=== PATIENT | male | born 1970 | race Caucasian/White ===

== ENCOUNTER 2016-09-07 17:47 | Inpatient (IN) | payer OTHER ==
[~2016-09-07] VITALS: Ht 167.6 cm; Wt 91.0 kg
[~2016-09-07 17:47] MED LIST: CITA20TA6 PO; CYCL-117 PO; DIAZ-90 PO; HYDR-3612 PO; IBUP-1542 PO; LISI20TA; MIRT15TA5 PO; NAPR-688 PO; OMEP40CA6 PO; RISP2TAB93 PO; ZOLP10TA5 PO; [UNRECOGNIZED DRUG - CODE] PO
[2016-09-07] MEDS ORDERED: SOD CHLORIDE 0.9% 1,000 ML IV STA ×2 (19:33→21:09)
[2016-09-07] MEDS ORDERED: ASPIRIN 325 MG TAB PO STA (19:54)
[2016-09-07 20:15] LABS: ADD SCAN DIFF NO
[2016-09-07 20:18] LABS: BASOPHIL # 0.1 10^3/ul (0.0-0.1); BASOPHILS % 0.5 % (0.0-2.0); EOSINOPHILS # 0.1 10^3/ul (0.0-0.5); HEMATOCRIT 41.7 % (42.0-52.0); HEMOGLOBIN 13.7 g/dl (14.0-18.0); LYMPHOCYTES # 3.2 10^3/ul (0.8-2.9); LYMPHOCYTES % 32.5 % (15.0-51.0); MEAN CORPUSCULAR HGB CONC 32.9 g/dl (32.0-37.0); MEAN CORPUSCULAR VOLUME 85.1 fl (82.0-101.0); MEAN PLATELET VOLUME 10.7 fl (7.4-10.4); MONOCYTE # 0.7 10^3/ul (0.3-0.9); MONOCYTES % 6.7 % (0.0-11.0); NEUTROPHIL # 5.7 10^3/ul (1.6-7.5); NEUTROPHILS % 58.5 % (39.0-77.0); PLATELET COUNT 285 10^3/UL (140-415); RED CELL DISTRIBUTION WIDTH 13.7 % (11.5-14.5); WHITE BLOOD COUNT 9.8 10^3/ul (4.8-10.8)
[2016-09-07 20:35] LABS: ALANINE AMINOTRANSFERASE 57 IU/L (13-69); ALBUMIN 4.8 g/dl (3.3-4.9); ALBUMIN/GLOBULIN RATIO 1.71; ALKALINE PHOSPHATASE 68 IU/L (42-121); ANION GAP 14 (8-16); ASPARTATE AMINO TRANSFERASE 29 IU/L (15-46); BILIRUBIN,INDIRECT 0.1 mg/dl (0-1.1); BILIRUBIN,TOTAL 0.1 mg/dl (0.2-1.3); BLOOD UREA NITROGEN 22 mg/dl (7-20); CALCIUM 9.1 mg/dl (8.4-10.2); CARBON DIOXIDE 27 mmol/L (21-31); CHLORIDE 101 mmol/L (97-110); CREATININE 2.44 mg/dl (0.61-1.24); GLUCOSE 102 mg/dl (70-220); POTASSIUM 4.2 mmol/L (3.5-5.1); SODIUM 138 mmol/L (135-144); TOTAL PROTEIN 7.6 g/dl (6.1-8.1)
[2016-09-07 20:47] LABS: B-TYPE NATRIURETIC PEPTIDE 305 PG/ML (0-125); TROPONIN-I < 0.012 ng/ml (0.00-0.12)
[2016-09-07] MEDS ORDERED: IBUP-1542 PO (20:52)
[2016-09-07] MEDS ORDERED: METF1000 PO (20:53)
[2016-09-07] MEDS ORDERED: CLON0.3T PO (20:53)
[2016-09-07] MEDS ORDERED: AMLO-218 PO (20:54)
[2016-09-07] MEDS ORDERED: HYD25 PO (20:55)
[2016-09-07] MEDS ORDERED: BENA40TA41 PO (20:55)
[2016-09-07] MEDS ORDERED: ATEN100T PO (20:56)
[2016-09-07] MEDS ORDERED: CITA20TA11 PO (20:57)
[2016-09-07] MEDS ORDERED: ASPI-664 PO (20:57)
[2016-09-07] MEDS ORDERED: RISP2TAB93 PO (20:58)
[2016-09-07] MEDS ORDERED: MIRT15TA5 PO (20:59)
--- NOTE | 2016-09-07 21:11 | RADRPT ---
PROCEDURE: XR Chest. CLINICAL INDICATION: Chest pain. TECHNIQUE: Single frontal view of the chest. COMPARISON: 06/29/2013. FINDINGS: The cardiomediastinal silhouette is within normal limits. Improved lung inflation over the interval. The lungs are clear. No signs of pleural fluid or pneumothorax are seen. The osseous structures an d soft tissues are unremarkable. IMPRESSION: No evidence for active cardiopulmonary disease. RPTAT: UU Physician Pat Date Time Electronically viewed and signed by Physician Pat on 09/07/2016 21:11 RS/
--- NOTE | 2016-09-07 21:17 | ERA ---
ER Documentation Chief Complaint Date/Time DATE: 09/07/16 TIME: 21:12 Chief Complaint REFERRED TO THE ER FROM PMD FOR LOW BLOOD PRESSURE AND LOW HGB HPI This 46-year-old male who stated to me that yesterday he was having very high blood pressure numbers with a systolic in the low 200s. He said that today however he is having hypotension. He says he has not taken any more of his usual blood pressure medication. He says he has been taking it today as he usually does. He said that he has been having some chest pain off and on yesterday and today with some shortness of breath. The chest pains described as a pressure without radiation but only lasts a brief period. Currently he is chest pain-free. He said he went to his doctor this afternoon who checked on him but told him to go home and take a nap and to rest. Patient says he feels slightly dizzy but not syncopal. The patient says he has not been sick lately no fever no nausea vomiting diarrhea or abdominal pain. ROS All systems reviewed and are negative except as per history of present illness. Medications Home Meds Reported Medications Mirtazapine* (Mirtazapine*) 15 Mg Tablet, 15 MG PO HS, TAB 09/07/16 Risperidone* (Risperdal*) 2 Mg Tablet, 2 MG PO DAILY, TAB 09/07/16 Citalopram Hydrobromide* (Celexa*) 20 Mg Tablet, 20 MG PO DAILY, #30 TAB 09/07/16 Aspirin (Aspirin Low Dose) 81 Mg Tablet.dr, 81 MG PO DAILY, #30 TAB 09/07/16 Atenolol* (Atenolol*) 100 Mg Tablet, 100 MG PO BID, #30 TAB 09/07/16 Benazepril Hcl* (Benazepril Hcl*) 40 Mg Tablet, 40 MG PO BID, #30 TAB 09/07/16 Hydrochlorothiazide* (Hydrochlorothiazide*) 25 Mg Tab, 25 MG PO DAILY, #30 TAB 09/07/16 Amlodipine Besylate* (Norvasc*) 10 Mg Tablet, 10 MG PO DAILY, TAB 09/07/16 Clonidine Hcl* (Clonidine Hcl*) 0.3 Mg Tablet, 0.3 MG PO TID Y for HTN, TAB 09/07/16 Metformin Hcl* (Metformin Hcl*) 1,000 Mg Tablet, 1000 MG PO WITH BREAKFAST DINNE , #60 TAB 09/07/16 Ibuprofen* (Ibuprofen*) 600 Mg Tablet, 600 MG PO Q6H Y for PAIN, TAB 09/07/16 Discontinued Reported Medications Risperidone* (Risperdal*) 2 Mg Tablet, 2 MG PO DAILY, TAB 01/06/16 Mirtazapine* (Mirtazapine*) 15 Mg Tablet, 15 MG PO HS, TAB 01/06/16 Citalopram Hydrobromide* (Citalopram Hydrobromide*) 20 Mg Tablet, 20 MG PO DAILY , #30 TAB 01/06/16 Glucosamine/Msm/Chondroitin A (CONDROLITE TABLET) 1 Each Tablet, 1 EACH PO DAILY 06/30/13 Cyclobenzaprine Hcl (Flexeril) 10 Mg Tablet, 7.5 MG PO BID 06/30/13 Omeprazole* (Omeprazole*) 40 Mg Capsule.dr, 40 MG PO BID 06/30/13 Naproxen* (Naproxen*) 500 Mg Tablet, 500 MG PO BID 06/30/13 Hydrocodone Bit-Acetaminophen* (Sublimity*) 1 Tab Tab, 1 TAB PO BID, TAB 06/30/13 Zolpidem Tartrate* (Zolpidem Tartrate*) 10 Mg Tablet, 10 MG PO HS 06/30/13 Lisinopril* (Prinivil*) 20 Mg Tablet, DAILY 06/29/13 Discontinued Scripts Diazepam* (Valium*) 5 Mg Tablet, 5 MG PO Q8 for MUSCLE SPASMS, #10 TAB Prov:JESI HOLLIS PA-C 09/04/15 Ibuprofen* (Motrin*) 600 Mg Tab, 600 MG PO Q6H Y for PAIN AND OR ELEVATED TEMP, #30 TAB Prov:JESI HOLLIS PA-C 09/04/15 Allergies Allergies: Coded Allergies: No Known Drug Allergy (Verified Allergy, Mild, 09/07/16) PMhx/Soc History of Surgery: Yes (neck sx) Anesthesia Reaction: No Hx Neurological Disorder: No Hx Respiratory Disorders: No Hx Cardiac Disorders: Yes (HTN) Hx Psychiatric Problems: No Hx Miscellaneous Medical Probl: Yes (DM) Hx Alcohol Use: No Hx Substance Use: No Hx Tobacco Use: No Smoking Status: Never smoker FmHx Family History: No coronary disease Physical Exam Vitals Vital Signs Date Time Temp Pulse Resp B/P Pulse Ox O2 Delivery O2 Flow Rate FiO2 09/07/16 20:30 58 16 92/62 100 Room Air 09/07/16 19:45 61 16 86/58 99 Room Air 09/07/16 17:55 97.3 61 18 102/59 99 Physical Exam Const: Well-developed, well-nourished Head: Atraumatic, normocephalic Eyes: Normal Conjunctiva, PERRLA, EOMI, normal sclera, no nystagmus ENT: Normal External Ears, Nose and Mouth, moist mucus membranes. Neck: Full range of motion. No meningismus, no lymphadenopathy. Resp: Clear to auscultation bilaterally, no wheezing, rhonchi, rales Cardio: Regular rate and rhythm, no murmurs, S1 S2 present Abd: Soft, non tender x 4, non distended. Normal bowel sounds, no guarding or rebound, no pulsitile abdominal masses or bruits Skin: No petechiae or rashes, no ecchymosis , no maculopapular rash Back: No midline or flank tenderness Ext: No cyanosis, or edema, FROM x 4, normal inspection, neurovascularly intact x 4 Neur: Awake and alert, STR 5/5 x 4, sensation intact x 4, no focal findings, cerebellum intact Psych: Normal Mood and Affect Result Diagram: 09/07/16200409/07/162004 Results 24 hrs Laboratory Tests Test 09/07/16 20:05 White Blood Count 9.810^3/ul Red Blood Count 4.9010^6/ul Hemoglobin 13.7g/dl Hematocrit 41.7% Mean Corpuscular Volume 85.1fl Mean Corpuscular Hemoglobin 28.0pg Mean Corpuscular Hemoglobin Concent 32.9g/dl Red Cell Distribution Width 13.7% Platelet Count 30896^3/UL Mean Platelet Volume 10.7fl Neutrophils % 58.5% Lymphocytes % 32.5% Monocytes % 6.7% Eosinophils % 1.0% Basophils % 0.5% Nucleated Red Blood Cells % 0.0/100WBC Neutrophils # 5.710^3/ul Lymphocytes # 3.210^3/ul Monocytes # 0.710^3/ul Eosinophils # 0.110^3/ul Basophils # 0.110^3/ul Nucleated Red Blood Cells # 0.010^3/ul Sodium Level 138mmol/L Potassium Level 4.2mmol/L Chloride Level 101mmol/L Carbon Dioxide Level 27mmol/L Anion Gap 14 Blood Urea Nitrogen 22mg/dl Creatinine 2.44mg/dl Glucose Level 102mg/dl Calcium Level 9.1mg/dl Total Bilirubin 0.1mg/dl Direct Bilirubin 0.00mg/dl Indirect Bilirubin 0.1mg/dl Aspartate Amino Transf (AST/SGOT) 29IU/L Alanine Aminotransferase (ALT/SGPT) 57IU/L Alkaline Phosphatase 68IU/L Troponin I < 0.012ng/ml B-Type Natriuretic Peptide 305PG/ML Total Protein 7.6g/dl Albumin 4.8g/dl Globulin 2.80g/dl Albumin/Globulin Ratio 1.71 Current Medications Medications (Trade) Dose Ordered Sig/Domingo Route PRN Reason Start Time Stop Time Status Last Admin Dose Admin Sodium Chloride (NS) 1,000 ml @ 1,000 mls/hr Q1H STAT IV 09/07/16 19:33 09/07/16 20:32 DC 09/07/16 19:48 Aspirin 325 mg 325 mg ONCE STAT PO 09/07/16 19:54 09/07/16 19:55 DC 09/07/16 20:33 Sodium Chloride (NS) 1,000 ml @ 1,000 mls/hr Q1H STAT IV 09/07/16 21:09 09/07/16 22:08 Procedures/MDM EKG: Rate/Rhythm: Sinus bradycardia heart rate 57 with inverted T waves in leads I and aVL QRS, ST, QT: NORMAL IA, QRS, QT] Impression: Abnormal EKG PROCEDURE: XR Chest. CLINICAL INDICATION: Chest pain. TECHNIQUE: Single frontal view of the chest. COMPARISON: 06/29/2013. FINDINGS: The cardiomediastinal silhouette is within normal limits. Improved lung inflation over the interval. The lungs are clear. No signs of pleural fluid or pneumothorax are seen. The osseous structures and soft tissues are unremarkable. IMPRESSION: No evidence for active cardiopulmonary disease. RPTAT: UU R Inocente, Physician Date Time Electronically viewed and signed by Vik Brower Physician on 09/07/2016 21:11 RS/ CC: BOBBI SHRESTHA DO Patient was given 1 L of fluid with a slight elevation in blood pressure current blood pressure is 92/78. He has 1 L hanging now. Will admit to the hospital for IV fluids and cardiac workup. It is possible he had taken more than he thought of his blood pressure medication No signs of infection Patient's symptoms are concerning for cardiac cause will require inpatient workup and continuous monitoring. Further w/u for ischemia, arrhythmia, PE or dissection will be deferred to the inpatient team. Accepting Care Team: Current data and ongoing care discussed. Time: Time of admission Primary Provider: [XOXOXO] Consulting: [XOXOXO] Outstanding Data: none Departure Diagnosis: Primary Impression: Hypotension Qualified Code: I95.9 - Hypotension, unspecified hypotension type Additional Impression: Chest pain Qualified Code: R07.9 - Chest pain, unspecified type Condition: Stable BOBBI SHRESTHA DO Sep 07, 2016 21:17
[2016-09-07] MEDS ORDERED: SOD CHLORIDE 0.9% 1,000 ML IV SCH (21:22)
[2016-09-07] MEDS ORDERED: NACL 0.9% 3 ML SYG IV SCH (21:30)
[2016-09-07] MEDS ORDERED: ACETAMINOPHEN 325 MG TAB PO PRN ×2 (21:30)
[2016-09-07] MEDS ORDERED: ONDANSETRON 4 MG INJ IV PRN ×2 (21:30)
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
--- NOTE | 2016-09-07 22:37 | RADRPT ---
PROCEDURE: ULTRASOUND RETROPERITONEUM CLINICAL INDICATION: 46-year-old male with renal insufficiency and hypotension. TECHNIQUE: Multiple sonographic images of the retroperitoneum were obtained. The images were revi ewed on a PACS workstation. COMPARISON: None. FINDINGS: The kidneys are well visualized. The right kidney measures 10.7 x 5.0 x 4.5 cm. The left kidney erin ures 10.1 x 5.8 x 4.8 cm. There is a small shadowing echogenic focus within the mid left kidney erin uring 4 mm suggestive of a nonobstructing calculus. There is no evidence for obstructive uropathy. The bladder has a small volume of urine but without internal echoes or shadowing stones. IMPRESSION: 1. No sonographic evidence for obstructive uropathy. 2. Probable small nonobstructing mid-left renal 4 mm calculus. .Juan Kruger MD, Date Time Electronically viewed and signed by .Juan Kruger MD, on 09/07/2016 22:37 .M/
[2016-09-07 22:50] VITALS: PULSE 66
[2016-09-07] MEDS: FAMOTIDINE 20 MG TAB PO SCH (23:44)
[2016-09-07] MEDS: SOD CHLORIDE 0.9% 1,000 ML IV SCH (23:45)
[2016-09-07 23:55] VITALS: Ht 167.6 cm; Wt 91.0 kg
[2016-09-08] VITALS (13 sets, daily range): BP systolic 108–166; BP diastolic 68–94; PULSE 55–79; RESP 16–21
[2016-09-08 01:40] LABS: CREATINE KINASE 61 IU/L (23-200)
[2016-09-08 02:46] LABS: CK-MB 0.45 ng/ml (0.0-2.4); TROPONIN-I < 0.012 ng/ml (0.00-0.12)
[2016-09-08 08:02] LABS: ADD SCAN DIFF NO
[2016-09-08 08:12] LABS: BASOPHIL # 0.1 10^3/ul (0.0-0.1); BASOPHILS % 0.6 % (0.0-2.0); EOSINOPHILS # 0.1 10^3/ul (0.0-0.5); EOSINOPHILS % 1.7 % (0.0-7.0); HEMATOCRIT 38.4 % (42.0-52.0); HEMOGLOBIN 12.6 g/dl (14.0-18.0); LYMPHOCYTES # 3.6 10^3/ul (0.8-2.9); LYMPHOCYTES % 43.2 % (15.0-51.0); MEAN CORPUSCULAR HEMOGLOBIN 28.3 pg (29.0-33.0); MEAN CORPUSCULAR HGB CONC 32.8 g/dl (32.0-37.0); MEAN CORPUSCULAR VOLUME 86.3 fl (82.0-101.0); MONOCYTE # 0.5 10^3/ul (0.3-0.9); MONOCYTES % 6.1 % (0.0-11.0); PLATELET COUNT 225 10^3/UL (140-415); RED BLOOD COUNT 4.45 10^6/ul (4.70-6.10); RED CELL DISTRIBUTION WIDTH 13.9 % (11.5-14.5); WHITE BLOOD COUNT 8.4 10^3/ul (4.8-10.8)
[2016-09-08] MEDS: ASPIRIN (EC) 81 MG TAB PO SCH (08:13)
[2016-09-08] MEDS: CITALOPRAM 20 MG TAB PO SCH (08:13)
[2016-09-08] MEDS: FAMOTIDINE 20 MG TAB PO SCH (08:13)
[2016-09-08 08:29] LABS: ADD UMIC NO; UR ASCORBIC ACID NEGATIVE (NEGATIVE); UR BILIRUBIN (Dip) NEGATIVE (NEGATIVE); UR BLOOD (Dip) NEGATIVE (NEGATIVE); UR CLARITY SLIGHTLY CLOUDY (CLEAR); UR COLOR YELLOW (YELLOW); UR GLUCOSE (Dip) NEGATIVE (NEGATIVE); UR KETONES (Dip) NEGATIVE (NEGATIVE); UR LEUKOCYTE ESTERASE (Dip) NEGATIVE Leu/ul (NEGATIVE); UR MUCUS FEW /HPF (NONE SEEN); UR NITRITE (Dip) NEGATIVE (NEGATIVE); UR RBC 1 /HPF (0-5); UR SPECIFIC GRAVITY (Dip) 1.014 (1.003-1.030); UR TOTAL PROTEIN (Dip) NEGATIVE (NEGATIVE); UR UROBILINOGEN (Dip) NEGATIVE (NEGATIVE)
[2016-09-08 08:45] LABS: ALBUMIN 4.3 g/dl (3.3-4.9); ALBUMIN/GLOBULIN RATIO 1.79; BILIRUBIN,INDIRECT 0.2 mg/dl (0-1.1); BILIRUBIN,TOTAL 0.2 mg/dl (0.2-1.3); CALCIUM 8.6 mg/dl (8.4-10.2); CHOL/HDL RATIO 6.9 RATIO; CREATININE 1.59 mg/dl (0.61-1.24); MAGNESIUM 2.1 mg/dl (1.7-2.5); POTASSIUM 4.3 mmol/L (3.5-5.1); TOTAL PROTEIN 6.7 g/dl (6.1-8.1)
[2016-09-08 09:50] LABS: THYROID STIMULATING HORMONE 1.63 MIU/L (0.465-4.680)
[2016-09-08 09:59] LABS: CREATINE KINASE 58 IU/L (23-200)
[2016-09-08 10:17] LABS: CK-MB 0.29 ng/ml (0.0-2.4); TROPONIN-I < 0.012 ng/ml (0.00-0.12)
[2016-09-08] MEDS: SOD CHLORIDE 0.9% 1,000 ML IV SCH (12:05)
--- NOTE | 2016-09-08 13:33 | CONS ---
Date/Time of Note Date/Time of Note DATE: 09/08/16 TIME: 13:24 Assessment/Plan Assessment/Plan Chief Complaint/Hosp Course 1. Nonoliguric acute kidney injury on top of possible CKD with unknown baseline creatinine. Etiology appears to be hemodynamics from volume depletion, diuretic effect. Patient's renal function is improving with IV hydration. At this point continue current treatment plan continue gentle IV hydration continue supportive care renally dose on this. Urinalysis is bland nonactive sediment. Renal ultrasound shows nonobstructing stones. No evidence of hydronephrosis. Will monitor closely 2. Hypertension. Etiology likely from volume depletion from diuretic therapy. Continue IV hydration monitor 2. Anemia. Monitor H&H levels #3 mineral bone disorder will monitor calcium phosphorus level 4. Hypertension. Patient now hypotensive. We will continue to hold blood pressure medications continue gentle hydration \Diabetes. Continue Accu-Cheks insulin signs 6. Nonobstructing renal calculi. Continue to observe outpatient urology for evaluation. Continue gentle hydration 7. Chest pain continue medical management patient's been ruled out for acute coronary syndrome. Thank you Dr. Gordon for this interesting consult will be a pleasure to follow patient with you throughout hospital course Problems: Consultation Date/Type/Reason Admit Date/Time Reason for Consultation sandra Hx of Present Illness This is a 46-year-old male with past medical history of hypertension diabetes history of possible CKD who presents to [facility] [place] for dizziness and possible syncope He said that he has been having some chest pain off and on yesterday and today with some shortness of breath. The chest pains described as a pressure without radiation but only lasts a brief period. Currently he is chest pain-free. He said he went to his doctor this afternoon who checked on him but told him to go home and take a nap and to rest. Patient states that he originally felt slightly dizzy but not syncopal when he came to the ED. In the emergency room patient was noted to be hypotensive. He was given IV fluids. Admitted to telemetry for further evaluation. In terms of patient's renal history patient denies any history of kidney disease denies any recent rashes hemoptysis hematemesis hematochezia no frothy urine 14 point review of systems conducted pertinent positives in HPI otherwise negative Past Medical History per hpi Social History Alcohol Use: none Smoking Status: Never smoker Drug Use: none Exam/Review of Systems Vital Signs Vitals Vital Signs Date Time Temp Pulse Resp B/P Pulse Ox O2 Delivery O2 Flow Rate FiO2 09/08/16 12:00 68 09/08/16 11:27 98.0 16 137/82 96 09/07/16 21:50 Room Air Intake and Output 09/07/16 09/07/16 09/08/16 15:00 23:00 07:00 Intake Total 20 ml Output Total 100 ml Balance -80 ml Exam HEENT. Head is normocephalic pupils are reactive to light next sentence cardiovascular regular rate no gallops clicks next sentence lungs show diminished breath sounds at the base Abdomen soft nontender palpation no rebound guarding Extremities are negative for clubbing cyanosis no edema Dermatologically no rashes Musculoskeletal no joint effusion Neurologically no focal deficit Results Result Diagram: 09/08/16 0635 09/08/16 0635 Results 24 hrs Laboratory Tests Test 09/07/16 20:05 09/08/16 00:35 09/08/16 05:00 09/08/16 06:35 White Blood Count 9.8 8.4 Red Blood Count 4.90 4.45 L Hemoglobin 13.7 L 12.6 L Hematocrit 41.7 L 38.4 L Mean Corpuscular Volume 85.1 86.3 Mean Corpuscular Hemoglobin 28.0 L 28.3 L Mean Corpuscular Hemoglobin Concent 32.9 32.8 Red Cell Distribution Width 13.7 13.9 Platelet Count 285 225 # Mean Platelet Volume 10.7 H 11.0 H Neutrophils % 58.5 48.0 Lymphocytes % 32.5 43.2 Monocytes % 6.7 6.1 Eosinophils % 1.0 1.7 Basophils % 0.5 0.6 Nucleated Red Blood Cells % 0.0 0.0 Neutrophils # 5.7 4.0 Lymphocytes # 3.2 H 3.6 H Monocytes # 0.7 0.5 Eosinophils # 0.1 0.1 Basophils # 0.1 0.1 Nucleated Red Blood Cells # 0.0 0.0 Sodium Level 138 138 Potassium Level 4.2 4.3 Chloride Level 101 103 Carbon Dioxide Level 27 28 Anion Gap 14 11 Blood Urea Nitrogen 22 H 28 H Creatinine 2.44 H 1.59 H Glucose Level 102 96 Calcium Level 9.1 8.6 Total Bilirubin 0.1 L 0.2 Direct Bilirubin 0.00 0.00 Indirect Bilirubin 0.1 0.2 Aspartate Amino Transf (AST/SGOT) 29 24 Alanine Aminotransferase (ALT/SGPT) 57 46 Alkaline Phosphatase 68 59 Troponin I < 0.012 < 0.012 < 0.012 B-Type Natriuretic Peptide 305 H Total Protein 7.6 6.7 Albumin 4.8 4.3 Globulin 2.80 2.40 Albumin/Globulin Ratio 1.71 1.79 Creatine Kinase 61 58 Creatine Kinase Index 0.7 0.5 Creatinine Kinase MB (Mass) 0.45 0.29 Urine Color YELLOW Urine Clarity SLIGHTLY CLOUDY A Urine pH 5.0 Urine Specific [place] 1.014 Urine Ketones NEGATIVE Urine Nitrite NEGATIVE Urine Bilirubin NEGATIVE Urine Urobilinogen NEGATIVE Urine Leukocyte Esterase NEGATIVE Urine Microscopic RBC 1 Urine Microscopic WBC 2 Urine Mucus FEW A Urine Hemoglobin NEGATIVE Urine Random Sodium 62 Urine Glucose NEGATIVE Urine Total Protein 17.0 H Hemoglobin A1c 6.7 H Magnesium Level 2.1 Triglycerides Level 192 H Cholesterol Level 166 LDL Cholesterol, Calculated 104 HDL Cholesterol 24 L Cholesterol/HDL Ratio 6.9 Thyroid Stimulating Hormone (TSH) 1.630 Medications Medications Current Medications Aspirin (Halfprin) 81 mg DAILY PO Last administered on 09/08/16 08:13; Admin Dose 81 MG; Start 09/08/16 at 09:00 Citalopram Hydrobromide 20 mg 20 mg DAILY PO Last administered on 09/08/16 08: 13; Admin Dose 20 MG; Start 09/08/16 at 09:00 Sodium Chloride (NS) 1,000 ml @ 70 mls/hr [id number] IV Last administered on 09/08 12:05; Admin Dose 70 MLS/HR; Start 09/07/16 at 21:22 Ondansetron HCl (Zofran Inj) 4 mg Q6H PRN IV NAUSEA AND/OR VOMITING; Start at 21:30 Acetaminophen (Tylenol Tab) 650 mg Q6H PRN PO PAIN LEVEL 1-3 OR FEVER; Start at 21:30 Famotidine (Pepcid) 20 mg DAILY PO Last administered on 09/08/16 08:13; Admin Dose 20 MG; Start 09/07/16 at 21:30 Hydralazine HCl (Apresoline) 25 mg Q6H PRN PO ELEVATED BLOOD PRESSURE; Start at 22:00 KELSEY DOVER DO Sep 08, 2016 13:33
--- NOTE | 2016-09-08 15:39 | PN ---
Date/Time of Note Date/Time of Note DATE: 09/08/16 TIME: 15:34 Assessment/Plan VTE Prophylaxis VTE Prophylaxis Intervention: SCD's Lines/Catheters IV Catheter Type (from Nrsg): Saline Lock Assessment/Plan Assessment/Plan 1. Chest pain : Patient has been ruled out for ACS, echo pending 2. Acute renal insufficiency superimposed on CKD: Improving 3. Prediabetes with hemoglobin A1c of 6.7 4. Dyslipidemia with hypertriglyceridemia and low HDL 5. Hypochromic anemia stable 6. Nonobstructing left renal calculus likely contributing to CKD Plan: Continue supportive care Await cardiology review and recommendations, if no intervention possible discharge. Patient has had 3 negative stress test in the past, Last one in 2013. Appreciate nephrology recs Diabetic education on good diet and exercise, sliding scale insulin while in- house and 1800 ADA diet. Subjective 24 Hr Interval Summary Free Text/Dictation Patient has had no further chest pain Exam/Review of Systems Vital Signs Vitals Vital Signs Date Time Temp Pulse Resp B/P Pulse Ox O2 Delivery O2 Flow Rate FiO2 09/08/16 12:00 68 09/08/16 11:27 98.0 16 137/82 96 09/07/16 21:50 Room Air Intake and Output 09/07/16 09/07/16 09/08/16 15:00 23:00 07:00 Intake Total 20 ml Output Total 100 ml Balance -80 ml Exam Constitutional: alert, oriented Head: atraumatic, normocephalic Neck: non-tender, supple Respiratory: clear to auscultation Cardiovascular: regular rate and rhythm Gastrointestinal: nl liver, spleen, non-tender, soft Extremities: normal pulses Results Result Diagram: 09/08/16 0635 09/08/16 0635 Results 24 hrs Laboratory Tests Test 09/07/16 20:05 09/08/16 00:35 09/08/16 05:00 09/08/16 06:35 White Blood Count 9.8 8.4 Red Blood Count 4.90 4.45 L Hemoglobin 13.7 L 12.6 L Hematocrit 41.7 L 38.4 L Mean Corpuscular Volume 85.1 86.3 Mean Corpuscular Hemoglobin 28.0 L 28.3 L Mean Corpuscular Hemoglobin Concent 32.9 32.8 Red Cell Distribution Width 13.7 13.9 Platelet Count 285 225 # Mean Platelet Volume 10.7 H 11.0 H Neutrophils % 58.5 48.0 Lymphocytes % 32.5 43.2 Monocytes % 6.7 6.1 Eosinophils % 1.0 1.7 Basophils % 0.5 0.6 Nucleated Red Blood Cells % 0.0 0.0 Neutrophils # 5.7 4.0 Lymphocytes # 3.2 H 3.6 H Monocytes # 0.7 0.5 Eosinophils # 0.1 0.1 Basophils # 0.1 0.1 Nucleated Red Blood Cells # 0.0 0.0 Sodium Level 138 138 Potassium Level 4.2 4.3 Chloride Level 101 103 Carbon Dioxide Level 27 28 Anion Gap 14 11 Blood Urea Nitrogen 22 H 28 H Creatinine 2.44 H 1.59 H Glucose Level 102 96 Calcium Level 9.1 8.6 Total Bilirubin 0.1 L 0.2 Direct Bilirubin 0.00 0.00 Indirect Bilirubin 0.1 0.2 Aspartate Amino Transf (AST/SGOT) 29 24 Alanine Aminotransferase (ALT/SGPT) 57 46 Alkaline Phosphatase 68 59 Troponin I < 0.012 < 0.012 < 0.012 B-Type Natriuretic Peptide 305 H Total Protein 7.6 6.7 Albumin 4.8 4.3 Globulin 2.80 2.40 Albumin/Globulin Ratio 1.71 1.79 Creatine Kinase 61 58 Creatine Kinase Index 0.7 0.5 Creatinine Kinase MB (Mass) 0.45 0.29 Urine Color YELLOW Urine Clarity SLIGHTLY CLOUDY A Urine pH 5.0 Urine Specific [place] 1.014 Urine Ketones NEGATIVE Urine Nitrite NEGATIVE Urine Bilirubin NEGATIVE Urine Urobilinogen NEGATIVE Urine Leukocyte Esterase NEGATIVE Urine Microscopic RBC 1 Urine Microscopic WBC 2 Urine Mucus FEW A Urine Hemoglobin NEGATIVE Urine Random Sodium 62 Urine Glucose NEGATIVE Urine Total Protein 17.0 H Hemoglobin A1c 6.7 H Magnesium Level 2.1 Triglycerides Level 192 H Cholesterol Level 166 LDL Cholesterol, Calculated 104 HDL Cholesterol 24 L Cholesterol/HDL Ratio 6.9 Thyroid Stimulating Hormone (TSH) 1.630 Medications Medications Current Medications Aspirin (Halfprin) 81 mg DAILY PO Last administered on 09/08/16 08:13; Admin Dose 81 MG; Start 09/08/16 at 09:00 Citalopram Hydrobromide 20 mg 20 mg DAILY PO Last administered on 09/08/16 08: 13; Admin Dose 20 MG; Start 09/08/16 at 09:00 Sodium Chloride (NS) 1,000 ml @ 70 mls/hr [id number] IV Last administered on 09/08 12:05; Admin Dose 70 MLS/HR; Start 09/07/16 at 21:22 Ondansetron HCl (Zofran Inj) 4 mg Q6H PRN IV NAUSEA AND/OR VOMITING; Start at 21:30 Acetaminophen (Tylenol Tab) 650 mg Q6H PRN PO PAIN LEVEL 1-3 OR FEVER; Start at 21:30 Famotidine (Pepcid) 20 mg DAILY PO Last administered on 09/08/16 08:13; Admin Dose 20 MG; Start 09/07/16 at 21:30 Hydralazine HCl (Apresoline) 25 mg Q6H PRN PO ELEVATED BLOOD PRESSURE; Start at 22:00 ANURAG ROSS Sep 08, 2016 15:39 ANURAG ROSS Sep 08, 2016 15:39
[2016-09-08] MEDS ORDERED: GLUCOSE GEL 15 GRAM TUBE BUCCAL PRN (16:00)
[2016-09-08] MEDS ORDERED: DEXTROSE 50% 50 ML SYRINGE IV PRN ×2 (16:00)
[2016-09-08] MEDS ORDERED: GLUCAGON 1 MG INJ IM PRN (16:00)
[2016-09-08] MEDS ORDERED: GLUCOSE GEL 15 GRAM TUBE PO PRN ×2 (16:00)
--- NOTE | 2016-09-08 17:14 | PDOCDIS ---
Discharge Instructions DIAGNOSIS Discharge Diagnosis 1. Chest pain 2. Prediabetes 3. Dyslipidemia CONDITION Patient Condition: Stable HOME CARE INSTRUCTIONS: Special Diet: 1800 Calorie ADA ACTIVITY: Activity Restrictions: Slowly Increase Activity Rest between Activity FOLLOW UP/APPOINTMENTS Follow-up Plan See your primary care doctor within 1-2 weeks. When you see your doctor, please ask him to check your kidney function. Also follow instructions given to you by the [employer] driver. Stay compliant with your medications ANURAG ROSS Sep 08, 2016 17:13
[2016-09-08] MEDS: INSULIN ASPART [NOVOLOG] 3 ML PEN SC SCH ×2 (17:28→20:57)
--- NOTE | 2016-09-08 18:39 | CONS ---
Date/Time of Note Date/Time of Note DATE: 09/08/16 TIME: 18:33 Assessment/Plan Assessment/Plan Chief Complaint/Hosp Course IMp: 1.Chest pain-assess for acs 2.Hotn-now improved 3.abnl ecg-lateral T wave inversion 4.psych d/o 5. DM 6. Renal failure Recc: -Tele -serial ecg's -Continue asa -PRN SLNTG -F/U echo-will consider am stress test given ongoing sx/risk factors and abnl ecg Problems: Consultation Date/Type/Reason Admit Date/Time Date of Consultation: Sep 08, 2016 Type of Consultation: cardiology Reason for Consultation chest pain Referring Provider: ANURAG ROSS Hx of Present Illness 46 y/o male with h/o HTN, DM who p/w c/o low BP, dizziness and assocaited chest pain, poorly decsribed, worse with ambulation, ongoing for 2 months. Since arrival negative troponin. ECG with lateral T wave inversion, S [place] to 57. Constitutional: no complaints Eyes: no complaints ENT: no complaints Respiratory: no complaints Cardiovascular: chest pain Gastrointestinal: no complaints Genitourinary: no complaints Musculoskeletal: no complaints Skin: no complaints Neurologic: dizziness Endocrine: other (DM) Past Medical History Medical History: diabetes, hypertension Past Surgical History Past Surgical Hx: no surgical history Family History Significant Family History: no pertinent family hx Social History Alcohol Use: none Smoking Status: Never smoker Drug Use: none Exam/Review of Systems Vital Signs Vitals Vital Signs Date Time Temp Pulse Resp B/P Pulse Ox O2 Delivery O2 Flow Rate FiO2 09/08/16 16:00 65 09/08/16 15:58 98.0 16 143/73 97 09/07/16 21:50 Room Air Intake and Output 09/07/16 09/07/16 09/08/16 15:00 23:00 07:00 Intake Total 20 ml Output Total 100 ml Balance -80 ml Exam Constitutional: alert, oriented Psych: no complaints Head: normocephalic ENMT: mucosa pink and moist Neck: jvd (8 cm water), supple Respiratory: clear to auscultation Cardiovascular: regular rate and rhythm Gastrointestinal: non-tender, soft Musculoskeletal: muscle tone (normal) Extremities: edema (none) Neurological: other (No focal deficits) Results Result Diagram: 09/08/16 0635 09/08/16 0635 Results 24 hrs Laboratory Tests Test 09/07/16 20:05 09/08/16 00:35 09/08/16 05:00 09/08/16 06:35 White Blood Count 9.8 8.4 Red Blood Count 4.90 4.45 L Hemoglobin 13.7 L 12.6 L Hematocrit 41.7 L 38.4 L Mean Corpuscular Volume 85.1 86.3 Mean Corpuscular Hemoglobin 28.0 L 28.3 L Mean Corpuscular Hemoglobin Concent 32.9 32.8 Red Cell Distribution Width 13.7 13.9 Platelet Count 285 225 # Mean Platelet Volume 10.7 H 11.0 H Neutrophils % 58.5 48.0 Lymphocytes % 32.5 43.2 Monocytes % 6.7 6.1 Eosinophils % 1.0 1.7 Basophils % 0.5 0.6 Nucleated Red Blood Cells % 0.0 0.0 Neutrophils # 5.7 4.0 Lymphocytes # 3.2 H 3.6 H Monocytes # 0.7 0.5 Eosinophils # 0.1 0.1 Basophils # 0.1 0.1 Nucleated Red Blood Cells # 0.0 0.0 Sodium Level 138 138 Potassium Level 4.2 4.3 Chloride Level 101 103 Carbon Dioxide Level 27 28 Anion Gap 14 11 Blood Urea Nitrogen 22 H 28 H Creatinine 2.44 H 1.59 H Glucose Level 102 96 Calcium Level 9.1 8.6 Total Bilirubin 0.1 L 0.2 Direct Bilirubin 0.00 0.00 Indirect Bilirubin 0.1 0.2 Aspartate Amino Transf (AST/SGOT) 29 24 Alanine Aminotransferase (ALT/SGPT) 57 46 Alkaline Phosphatase 68 59 Troponin I < 0.012 < 0.012 < 0.012 B-Type Natriuretic Peptide 305 H Total Protein 7.6 6.7 Albumin 4.8 4.3 Globulin 2.80 2.40 Albumin/Globulin Ratio 1.71 1.79 Creatine Kinase 61 58 Creatine Kinase Index 0.7 0.5 Creatinine Kinase MB (Mass) 0.45 0.29 Urine Color YELLOW Urine Clarity SLIGHTLY CLOUDY A Urine pH 5.0 Urine Specific [place] 1.014 Urine Ketones NEGATIVE Urine Nitrite NEGATIVE Urine Bilirubin NEGATIVE Urine Urobilinogen NEGATIVE Urine Leukocyte Esterase NEGATIVE Urine Microscopic RBC 1 Urine Microscopic WBC 2 Urine Mucus FEW A Urine Hemoglobin NEGATIVE Urine Random Creatinine 153.44 Urine Random Sodium 63 Urine Glucose NEGATIVE Urine Total Protein 16.0 H Hemoglobin A1c 6.7 H Magnesium Level 2.1 Triglycerides Level 192 H Cholesterol Level 166 LDL Cholesterol, Calculated 104 HDL Cholesterol 24 L Cholesterol/HDL Ratio 6.9 Thyroid Stimulating Hormone (TSH) 1.630 Test 09/08/16 17:02 Bedside Glucose 151 Medications Medications Current Medications Aspirin (Halfprin) 81 mg DAILY PO Last administered on 09/08/16 08:13; Admin Dose 81 MG; Start 09/08/16 at 09:00 Citalopram Hydrobromide 20 mg 20 mg DAILY PO Last administered on 09/08/16 08: 13; Admin Dose 20 MG; Start 09/08/16 at 09:00 Sodium Chloride (NS) 1,000 ml @ 70 mls/hr [id number] IV Last administered on 09/08 12:05; Admin Dose 70 MLS/HR; Start 09/07/16 at 21:22 Ondansetron HCl (Zofran Inj) 4 mg Q6H PRN IV NAUSEA AND/OR VOMITING; Start at 21:30 Acetaminophen (Tylenol Tab) 650 mg Q6H PRN PO PAIN LEVEL 1-3 OR FEVER; Start at 21:30 Famotidine (Pepcid) 20 mg DAILY PO Last administered on 09/08/16 08:13; Admin Dose 20 MG; Start 09/07/16 at 21:30 Hydralazine HCl (Apresoline) 25 mg Q6H PRN PO ELEVATED BLOOD PRESSURE; Start at 22:00 Diagnostic Test (Pha) (Accu-Chek) 1 ea 02 XX ; Start 09/09/16 at 02:00 Miscellaneous Information 1 ea NOTE XX ; Start 09/08/16 at 16:00 Glucose (Glutose) 15 gm Q15M PRN PO DECREASED GLUCOSE; Start 09/08/16 at 16:00 Glucose (Glutose) 22.5 gm Q15M PRN PO DECREASED GLUCOSE; Start 09/08/16 at 16: 00 Dextrose (D50w Syringe) 25 ml Q15M PRN IV DECREASED GLUCOSE; Start 09/08/16 at 16:00 Dextrose (D50w Syringe) 50 ml Q15M PRN IV DECREASED GLUCOSE; Start 09/08/16 at 16:00 Glucagon (Glucagen) 1 mg Q15M PRN IM DECREASED GLUCOSE; Start 09/08/16 at 16:00 Glucose (Glutose) 15 gm Q15M PRN BUCCAL DECREASED GLUCOSE; Start 09/08/16 at 16 :00 KELSEY HAY Sep 08, 2016 18:39
[2016-09-08] MEDS ORDERED: NITROGLYCERIN (SL) 0.4 MG TAB SL PRN (19:00)
--- NOTE | 2016-09-08 19:52 | RADRPT ---
Echocardiogram Report Patient Name: LESLY CLARKE Gender: Male Date: 1970 Study Date: 08-Sep-2016 Rn Long Term Care: [facility] Location: 5537 Ref. Physician: MOMO HARRIS Quality: Adequate Procedures: Transthoracic echocardiogram with complete 2D, M-Mode, and doppler examination. Indications: Chest Pain. Hypotension. 2D/M Mode Doppler Measurement Value Normal Ranges Measurement Value Normal Ranges LVIDd 2D 4.6 3.5 - 5.6 cm AV Peak [place] 1.2 m/sec LVIDs 2D 3.1 2.1 - 4.1 cm AV Peak PG 5.5 mmHg LVPWd 2D 1.2 0.6 - 1.1 cm LVOT Peak [place] 0.8 m/sec IVSd 2D 1.3 0.6 - 1.1 cm LVOT Peak PG 2.8 mmHg AoR Diam 2D 2.6 2.0 - 3.7 cm MV E Peak [place] 0.8 m/sec EDV 2D 95.5 cm3 MV A Peak [place] 0.5 m/sec ESV 2D 29.6 cm3 MV E/A 1.6 LA Dimen 2D 3.1 2.3 - 4.0 cm MV Decel Time 275 msec MV Decel [place] 3 MV E/A 1.6 TR Peak [place] 2.0 m/sec TR Peak PG 16.5 mmHg RVSP 25.0 mmHg Findings Left Ventricle: Normal left ventricular systolic function. Normal left ventricular cavity size. Mild concentric left ventricular hypertrophy. Ejection fraction is visually estimated at 60 %. Tissue Doppler/Mitral Doppler indices are within normal limits. Right Ventricle: Normal right ventricular size. Normal right ventricular systolic function. Left Atrium: The left atrium is normal in size. Right Atrium: The right atrium is normal in size. Mitral Valve: Mitral valve leaflets appear mildly thickened. Mild mitral annular calcification. Trace mitral regurgitation. Aortic Valve: Normal appearance of the aortic valve. Trace aortic valve regurgitation. Tricuspid Valve: Normal appearance of the tricuspid valve. Estimated peak PA systolic pressure 25 mmHg. There is mild tricuspid regurgitation. Pulmonic Valve: Pulmonic valve not well visualized. There is trace pulmonic regurgitation. Pericardium: Normal pericardium with no significant pericardial effusion. Aorta: Normal aortic root. IVC: Normal size and poor respiratory collapse consistent with elevated right atrial pressure. Conclusions 1.Normal left ventricular systolic function. Normal left ventricular cavity size. Mild concentric left ventricular hypertrophy. Ejection fraction is visually estimated at 60 %. Tissue Doppler/Mitral Doppler indices are within normal limits. 2.Mitral valve leaflets appear mildly thickened. Mild mitral annular calcification. Trace mitral regurgitation. 3.Normal appearance of the aortic valve. Trace aortic valve regurgitation. 4.Normal appearance of the tricuspid valve. Estimated peak PA systolic pressure 25 mmHg. There is mild tricuspid regurgitation. 5.Pulmonic valve not well visualized. There is trace pulmonic regurgitation. Electronically Signed By: Sundar Marie 08-Sep-2016 19:51:55 -0700 Patient Name: LESLY CLARKE Study Date: 08-Sep-2016 [id number]
[2016-09-09] VITALS (13 sets, daily range): BP systolic 149–183; BP diastolic 72–104; PULSE 55–77; RESP 20–21
[2016-09-09] MEDS: ACCU-CHEK XX SCH (01:59)
[2016-09-09] MEDS ORDERED: ACCU-CHEK XX SCH (02:00)
[2016-09-09 02:01] LABS: ADD UMIC NO; UR ASCORBIC ACID NEGATIVE (NEGATIVE); UR BILIRUBIN (Dip) NEGATIVE (NEGATIVE); UR BLOOD (Dip) NEGATIVE (NEGATIVE); UR CLARITY CLEAR (CLEAR); UR COLOR STRAW (YELLOW); UR GLUCOSE (Dip) NEGATIVE (NEGATIVE); UR KETONES (Dip) NEGATIVE (NEGATIVE); UR LEUKOCYTE ESTERASE (Dip) NEGATIVE Leu/ul (NEGATIVE); UR NITRITE (Dip) NEGATIVE (NEGATIVE); UR TOTAL PROTEIN (Dip) NEGATIVE (NEGATIVE); UR UROBILINOGEN (Dip) NEGATIVE (NEGATIVE)
[2016-09-09] MEDS: SOD CHLORIDE 0.9% 1,000 ML IV SCH ×2 (03:12→16:16)
[2016-09-09 07:32] LABS: ADD SCAN DIFF NO
[2016-09-09 07:36] LABS: BASOPHILS % 0.6 % (0.0-2.0); EOSINOPHILS # 0.1 10^3/ul (0.0-0.5); EOSINOPHILS % 1.5 % (0.0-7.0); HEMATOCRIT 39.7 % (42.0-52.0); HEMOGLOBIN 13.4 g/dl (14.0-18.0); LYMPHOCYTES # 3.1 10^3/ul (0.8-2.9); LYMPHOCYTES % 43.3 % (15.0-51.0); MEAN CORPUSCULAR HEMOGLOBIN 28.3 pg (29.0-33.0); MEAN CORPUSCULAR HGB CONC 33.8 g/dl (32.0-37.0); MEAN CORPUSCULAR VOLUME 83.9 fl (82.0-101.0); MEAN PLATELET VOLUME 10.9 fl (7.4-10.4); MONOCYTE # 0.4 10^3/ul (0.3-0.9); MONOCYTES % 6.1 % (0.0-11.0); NEUTROPHIL # 3.5 10^3/ul (1.6-7.5); NEUTROPHILS % 47.8 % (39.0-77.0); PLATELET COUNT 235 10^3/UL (140-415); RED BLOOD COUNT 4.73 10^6/ul (4.70-6.10); RED CELL DISTRIBUTION WIDTH 13.3 % (11.5-14.5); WHITE BLOOD COUNT 7.2 10^3/ul (4.8-10.8)
[2016-09-09] MEDS: INSULIN ASPART [NOVOLOG] 3 ML PEN SC SCH ×4 (07:49→20:21)
[2016-09-09 08:03] LABS: CREATININE 0.94 mg/dl (0.61-1.24); MAGNESIUM 1.8 mg/dl (1.7-2.5); PHOSPHORUS 3.9 mg/dl (2.5-4.9); POTASSIUM 4.1 mmol/L (3.5-5.1)
[2016-09-09] MEDS: ASPIRIN (EC) 81 MG TAB PO SCH (08:07)
[2016-09-09] MEDS: FAMOTIDINE 20 MG TAB PO SCH (08:07)
[2016-09-09] MEDS: CITALOPRAM 20 MG TAB PO SCH (08:07)
--- NOTE | 2016-09-09 10:33 | PN ---
Date/Time of Note Date/Time of Note DATE: 09/09/16 TIME: 10:31 Assessment/Plan VTE Prophylaxis VTE Prophylaxis Intervention: SCD's Lines/Catheters IV Catheter Type (from Nrs): Peripheral IV Urinary Cath still in place: No Assessment/Plan Assessment/Plan 1. Chest pain : Patient has been ruled out for ACS, echo pending 2. Acute renal insufficiency superimposed on CKD: resolved 3. Prediabetes with hemoglobin A1c of 6.7 4. Dyslipidemia with hypertriglyceridemia and low HDL 5. Hypochromic anemia stable 6. Nonobstructing left renal calculus likely contributing to CKD Plan: Continue supportive care Patient has had 3 negative stress test in the past, Last one in 2013 / stress test today Appreciate nephrology recs / consider starting metformin in view of renal disease Diabetic education on good diet and exercise, sliding scale insulin while in- house and 1800 ADA diet. Subjective 24 Hr Interval Summary Free Text/Dictation no new issues, stress test Exam/Review of Systems Vital Signs Vitals Vital Signs Date Time Temp Pulse Resp B/P Pulse Ox O2 Delivery O2 Flow Rate FiO2 09/09/16 09:03 57 09/09/16 03:47 98.0 21 149/72 97 09/07/16 21:50 Room Air Intake and Output 09/08/16 09/08/16 09/09/16 15:00 23:00 07:00 Intake Total 1000 ml 1230 ml 1020 ml Output Total 900 ml Balance 1000 ml 1230 ml 120 ml Exam Constitutional: alert, oriented Head: atraumatic, normocephalic Neck: non-tender, supple Respiratory: clear to auscultation Cardiovascular: regular rate and rhythm Gastrointestinal: non-tender, soft Extremities: normal pulses Results Result Diagram: 09/09/16 0620 09/09/16 0620 Results 24 hrs Laboratory Tests Test 09/08/16 17:02 09/08/16 20:57 09/08/16 21:20 09/09/16 06:20 Bedside Glucose 151 162 Urine Color STRAW Urine Clarity CLEAR Urine pH 5.0 Urine Specific [place] 1.010 Urine Ketones NEGATIVE Urine Nitrite NEGATIVE Urine Bilirubin NEGATIVE Urine Urobilinogen NEGATIVE Urine Leukocyte Esterase NEGATIVE Urine Hemoglobin NEGATIVE Urine Glucose NEGATIVE Urine Total Protein NEGATIVE White Blood Count 7.2 Red Blood Count 4.73 Hemoglobin 13.4 L Hematocrit 39.7 L Mean Corpuscular Volume 83.9 Mean Corpuscular Hemoglobin 28.3 L Mean Corpuscular Hemoglobin Concent 33.8 Red Cell Distribution Width 13.3 Platelet Count 235 Mean Platelet Volume 10.9 H Neutrophils % 47.8 Lymphocytes % 43.3 Monocytes % 6.1 Eosinophils % 1.5 Basophils % 0.6 Nucleated Red Blood Cells % 0.0 Neutrophils # 3.5 Lymphocytes # 3.1 H Monocytes # 0.4 Eosinophils # 0.1 Basophils # 0.0 Nucleated Red Blood Cells # 0.0 Sodium Level 140 Potassium Level 4.1 Chloride Level 106 Carbon Dioxide Level 29 Anion Gap 9 Blood Urea Nitrogen 17 # Creatinine 0.94 Glucose Level 111 Calcium Level 9.0 Phosphorus Level 3.9 Magnesium Level 1.8 Troponin I < 0.012 Test 09/09/16 07:48 Bedside Glucose 114 Medications Medications Current Medications Aspirin (Halfprin) 81 mg DAILY PO Last administered on 09/09/16 08:07; Admin Dose 81 MG; Start 09/08/16 at 09:00 Citalopram Hydrobromide 20 mg 20 mg DAILY PO Last administered on 09/09/16 08: 07; Admin Dose 20 MG; Start 09/08/16 at 09:00 Sodium Chloride (NS) 1,000 ml @ 70 mls/hr [id number] IV Last administered on 09/09 03:12; Admin Dose 70 MLS/HR; Start 09/07/16 at 21:22 Ondansetron HCl (Zofran Inj) 4 mg Q6H PRN IV NAUSEA AND/OR VOMITING; Start at 21:30 Acetaminophen (Tylenol Tab) 650 mg Q6H PRN PO PAIN LEVEL 1-3 OR FEVER; Start at 21:30 Famotidine (Pepcid) 20 mg DAILY PO Last administered on 09/09/16 08:07; Admin Dose 20 MG; Start 09/07/16 at 21:30 Hydralazine HCl (Apresoline) 25 mg Q6H PRN PO ELEVATED BLOOD PRESSURE Last administered on 09/09/16 03:12; Admin Dose 25 MG; Start 09/07/16 at 22:00 Diagnostic Test (Pha) (Accu-Chek) 1 ea 02 XX ; Start 09/09/16 at 02:00 Miscellaneous Information 1 ea NOTE XX ; Start 09/08/16 at 16:00 Glucose (Glutose) 15 gm Q15M PRN PO DECREASED GLUCOSE; Start 09/08/16 at 16:00 Glucose (Glutose) 22.5 gm Q15M PRN PO DECREASED GLUCOSE; Start 09/08/16 at 16: 00 Dextrose (D50w Syringe) 25 ml Q15M PRN IV DECREASED GLUCOSE; Start 09/08/16 at 16:00 Dextrose (D50w Syringe) 50 ml Q15M PRN IV DECREASED GLUCOSE; Start 09/08/16 at 16:00 Glucagon (Glucagen) 1 mg Q15M PRN IM DECREASED GLUCOSE; Start 09/08/16 at 16:00 Glucose (Glutose) 15 gm Q15M PRN BUCCAL DECREASED GLUCOSE; Start 09/08/16 at 16 :00 Nitroglycerin (Nitroglycerin (Sl Tab) 0.4 Mg) 1 tab Q5M PRN SL ANGINA; Start at 19:00 ANURAG ROSS Sep 09, 2016 10:33
--- NOTE | 2016-09-09 10:37 | RADRPT ---
Vent Rate: 70 bpm RR Interval: 0 msec [place] Interval: 178 msec QRS Duration: 92 msec QT Interval: 394 msec QTC Interval: 425 msec P-R-T [place]: 52 - 26 - 92 degrees Normal sinus rhythm with sinus arrhythmia Abnormal QRS-T angle, consider primary T wave abnormality Abnormal ECG Electronically Signed By: Cory Garsia [id number]
--- NOTE | 2016-09-09 10:45 | PN ---
Date/Time of Note Date/Time of Note DATE: 09/09/16 TIME: 10:43 Assessment/Plan Lines/Catheters IV [facility]from [facility] Peripheral IV Urinary Cath still in place: No Assessment/Plan Chief Complaint/Hosp Course 1. Nonoliguric acute kidney injury on top of possible CKD with unknown baseline creatinine. Etiology appears to be hemodynamics from volume depletion, diuretic effect. Patient's renal function has improved with IV hydration. -cont renally dose all meds, avoid nephrtoxins 2. Hypotension. Etiology likely from volume depletion from diuretic therapy. resolved 2. Anemia. Monitor H&H levels #3 mineral bone disorder will monitor calcium phosphorus level 4. Hypertension. cont med/herminio \Diabetes. Continue Accu-Cheks insulin signs 6. Nonobstructing renal calculi. Continue to observe outpatient urology for evaluation. Continue gentle hydration 7. Chest pain continue medical management patient's been ruled out for acute coronary syndrome. Problems: Subjective 24 Hr Interval Summary Free Text/Dictation pt stable, no acute events overnight Exam/Review of Systems Vital Signs Vitals Vital Signs Date Time Temp Pulse Resp B/P Pulse Ox O2 Delivery O2 Flow Rate FiO2 09/09/16 09:03 57 09/09/16 03:47 98.0 21 149/72 97 09/07/16 21:50 Room Air Intake and Output 09/08/16 09/08/16 09/09/16 15:00 23:00 07:00 Intake Total 1000 ml 1230 ml 1020 ml Output Total 900 ml Balance 1000 ml 1230 ml 120 ml Exam HEENT. Head is normocephalic pupils are reactive to light next sentence cardiovascular regular rate no gallops lungs show diminished breath sounds at the base Abdomen soft nontender palpation no rebound guarding Extremities are negative for clubbing cyanosis no edema Dermatologically no rashes Musculoskeletal no joint effusion Neurologically no focal deficit Results Result Diagram: 09/09/16 0620 09/09/16 0620 Results 24 hrs Laboratory Tests Test 09/08/16 17:02 09/08/16 20:57 09/08/16 21:20 09/09/16 06:20 Bedside Glucose 151 162 Urine Color STRAW Urine Clarity CLEAR Urine pH 5.0 Urine Specific [place] 1.010 Urine Ketones NEGATIVE Urine Nitrite NEGATIVE Urine Bilirubin NEGATIVE Urine Urobilinogen NEGATIVE Urine Leukocyte Esterase NEGATIVE Urine Hemoglobin NEGATIVE Urine Glucose NEGATIVE Urine Total Protein NEGATIVE White Blood Count 7.2 Red Blood Count 4.73 Hemoglobin 13.4 L Hematocrit 39.7 L Mean Corpuscular Volume 83.9 Mean Corpuscular Hemoglobin 28.3 L Mean Corpuscular Hemoglobin Concent 33.8 Red Cell Distribution Width 13.3 Platelet Count 235 Mean Platelet Volume 10.9 H Neutrophils % 47.8 Lymphocytes % 43.3 Monocytes % 6.1 Eosinophils % 1.5 Basophils % 0.6 Nucleated Red Blood Cells % 0.0 Neutrophils # 3.5 Lymphocytes # 3.1 H Monocytes # 0.4 Eosinophils # 0.1 Basophils # 0.0 Nucleated Red Blood Cells # 0.0 Sodium Level 140 Potassium Level 4.1 Chloride Level 106 Carbon Dioxide Level 29 Anion Gap 9 Blood Urea Nitrogen 17 # Creatinine 0.94 Glucose Level 111 Calcium Level 9.0 Phosphorus Level 3.9 Magnesium Level 1.8 Troponin I < 0.012 Test 09/09/16 07:48 Bedside Glucose 114 Medications Medications Current Medications Aspirin (Halfprin) 81 mg DAILY PO Last administered on 09/09/16 08:07; Admin Dose 81 MG; Start 09/08/16 at 09:00 Citalopram Hydrobromide 20 mg 20 mg DAILY PO Last administered on 09/09/16 08: 07; Admin Dose 20 MG; Start 09/08/16 at 09:00 Sodium Chloride (NS) 1,000 ml @ 70 mls/hr [id number] IV Last administered on 09/09 03:12; Admin Dose 70 MLS/HR; Start 09/07/16 at 21:22 Ondansetron HCl (Zofran Inj) 4 mg Q6H PRN IV NAUSEA AND/OR VOMITING; Start at 21:30 Acetaminophen (Tylenol Tab) 650 mg Q6H PRN PO PAIN LEVEL 1-3 OR FEVER; Start at 21:30 Famotidine (Pepcid) 20 mg DAILY PO Last administered on 09/09/16 08:07; Admin Dose 20 MG; Start 09/07/16 at 21:30 Hydralazine HCl (Apresoline) 25 mg Q6H PRN PO ELEVATED BLOOD PRESSURE Last administered on 09/09/16 03:12; Admin Dose 25 MG; Start 09/07/16 at 22:00 Diagnostic Test (Pha) (Accu-Chek) 1 ea 02 XX ; Start 09/09/16 at 02:00 Miscellaneous Information 1 ea NOTE XX ; Start 09/08/16 at 16:00 Glucose (Glutose) 15 gm Q15M PRN PO DECREASED GLUCOSE; Start 09/08/16 at 16:00 Glucose (Glutose) 22.5 gm Q15M PRN PO DECREASED GLUCOSE; Start 09/08/16 at 16: 00 Dextrose (D50w Syringe) 25 ml Q15M PRN IV DECREASED GLUCOSE; Start 09/08/16 at 16:00 Dextrose (D50w Syringe) 50 ml Q15M PRN IV DECREASED GLUCOSE; Start 09/08/16 at 16:00 Glucagon (Glucagen) 1 mg Q15M PRN IM DECREASED GLUCOSE; Start 09/08/16 at 16:00 Glucose (Glutose) 15 gm Q15M PRN BUCCAL DECREASED GLUCOSE; Start 09/08/16 at 16 :00 Nitroglycerin (Nitroglycerin (Sl Tab) 0.4 Mg) 1 tab Q5M PRN SL ANGINA; Start at 19:00 KELSEY DOVER DO Sep 09, 2016 10:45
[2016-09-09] MEDS ORDERED: BENA40TA41 PO (15:12)
[2016-09-09] MEDS ORDERED: ATEN50TA PO (15:12)
[2016-09-09] MEDS ORDERED: NIT4 SL (15:15)
[2016-09-09] MEDS: LISINOPRIL 20 MG TAB PO SCH (16:15)
--- NOTE | 2016-09-09 18:45 | CONS ---
Date/Time of Note Date/Time of Note DATE: 09/09/16 TIME: 18:42 Assessment/Plan Assessment/Plan Chief Complaint/Hosp Course IMp: 1.Chest pain-assess for acs. Negtaive trop x 3/NL EF by trinajo this admit 2.Hotn-now improved nwith HTN uncontrolled significantly 3.abnl ecg-lateral T wave inversion 4.psych d/o 5. DM 6. Renal failure-improved s/p IVF hydration Recc: -Tele -serial ecg's -Continue asa -PRN SLNTG -Lexiscan inpatient versus outpatient if BP improves/no chest pain -Continue ACEI -start CCB and f/u bp Problems: Consultation Date/Type/Reason Admit Date/Time Sep 07, 2016 at 21:23 Initial Consult Date 09/08/16 Type of Consultation: cardiology Reason for Consultation Chest pain/HTN Referring Provider: ANURAG ROSS Exam/Review of Systems Vital Signs Vitals Vital Signs Date Time Temp Pulse Resp B/P Pulse Ox O2 Delivery O2 Flow Rate FiO2 09/09/16 17:47 175/100 09/09/16 16:16 70 09/09/16 16:00 98.5 20 97 Room Air Intake and Output 09/08/16 09/08/16 09/09/16 15:00 23:00 07:00 Intake Total 1000 ml 1230 ml 1020 ml Output Total 900 ml Balance 1000 ml 1230 ml 120 ml Exam Review of Systems: CONSTITUTIONAL: No fevers, chills. PULMONARY: No sob CARDIOVASCULAR: No chest pain/palpitations GASTROINTESTINAL: No nausea/vomiting. GENITOURINARY: No hematuria/dysuria. MUSCULOSKELETAL: No myagias/arthalgias. PSYCHIATRIC: The patient denies depression. NEUROLOGIC: No weakness Constitutional: alert, oriented Psych: no complaints Head: normocephalic ENMT: mucosa pink and moist Neck: jvd, supple Respiratory: clear to auscultation Cardiovascular: regular rate and rhythm Gastrointestinal: non-tender, soft Extremities: edema (none) Neurological: other (No focal deficits) Results Result Diagram: 09/09/16 0620 09/09/16 0620 Results 24 hrs Laboratory Tests Test 09/08/16 20:57 09/08/16 21:20 09/09/16 06:20 09/09/16 07:48 Bedside Glucose 162 114 Urine Color STRAW Urine Clarity CLEAR Urine pH 5.0 Urine Specific [place] 1.010 Urine Ketones NEGATIVE Urine Nitrite NEGATIVE Urine Bilirubin NEGATIVE Urine Urobilinogen NEGATIVE Urine Leukocyte Esterase NEGATIVE Urine Hemoglobin NEGATIVE Urine Glucose NEGATIVE Urine Total Protein NEGATIVE White Blood Count 7.2 Red Blood Count 4.73 Hemoglobin 13.4 L Hematocrit 39.7 L Mean Corpuscular Volume 83.9 Mean Corpuscular Hemoglobin 28.3 L Mean Corpuscular Hemoglobin Concent 33.8 Red Cell Distribution Width 13.3 Platelet Count 235 Mean Platelet Volume 10.9 H Neutrophils % 47.8 Lymphocytes % 43.3 Monocytes % 6.1 Eosinophils % 1.5 Basophils % 0.6 Nucleated Red Blood Cells % 0.0 Neutrophils # 3.5 Lymphocytes # 3.1 H Monocytes # 0.4 Eosinophils # 0.1 Basophils # 0.0 Nucleated Red Blood Cells # 0.0 Sodium Level 140 Potassium Level 4.1 Chloride Level 106 Carbon Dioxide Level 29 Anion Gap 9 Blood Urea Nitrogen 17 # Creatinine 0.94 Glucose Level 111 Calcium Level 9.0 Phosphorus Level 3.9 Magnesium Level 1.8 Troponin I < 0.012 Test 09/09/16 11:51 09/09/16 17:10 Bedside Glucose 111 106 Medications Medications Current Medications Aspirin (Halfprin) 81 mg DAILY PO Last administered on 09/09/16 08:07; Admin Dose 81 MG; Start 09/08/16 at 09:00 Citalopram Hydrobromide 20 mg 20 mg DAILY PO Last administered on 09/09/16 08: 07; Admin Dose 20 MG; Start 09/08/16 at 09:00 Sodium Chloride (NS) 1,000 ml @ 70 mls/hr [id number] IV Last administered on 09/09 03:12; Admin Dose 70 MLS/HR; Start 09/07/16 at 21:22 Ondansetron HCl (Zofran Inj) 4 mg Q6H PRN IV NAUSEA AND/OR VOMITING; Start at 21:30 Acetaminophen (Tylenol Tab) 650 mg Q6H PRN PO PAIN LEVEL 1-3 OR FEVER; Start at 21:30 Famotidine (Pepcid) 20 mg DAILY PO Last administered on 09/09/16 08:07; Admin Dose 20 MG; Start 09/07/16 at 21:30 Hydralazine HCl (Apresoline) 25 mg Q6H PRN PO ELEVATED BLOOD PRESSURE Last administered on 09/09/16 16:14; Admin Dose 25 MG; Start 09/07/16 at 22:00 Diagnostic Test (Pha) (Accu-Chek) 1 ea 02 XX ; Start 09/09/16 at 02:00 Miscellaneous Information 1 ea NOTE XX ; Start 09/08/16 at 16:00 Glucose (Glutose) 15 gm Q15M PRN PO DECREASED GLUCOSE; Start 09/08/16 at 16:00 Glucose (Glutose) 22.5 gm Q15M PRN PO DECREASED GLUCOSE; Start 09/08/16 at 16: 00 Dextrose (D50w Syringe) 25 ml Q15M PRN IV DECREASED GLUCOSE; Start 09/08/16 at 16:00 Dextrose (D50w Syringe) 50 ml Q15M PRN IV DECREASED GLUCOSE; Start 09/08/16 at 16:00 Glucagon (Glucagen) 1 mg Q15M PRN IM DECREASED GLUCOSE; Start 09/08/16 at 16:00 Glucose (Glutose) 15 gm Q15M PRN BUCCAL DECREASED GLUCOSE; Start 09/08/16 at 16 :00 Nitroglycerin (Nitroglycerin (Sl Tab) 0.4 Mg) 1 tab Q5M PRN SL ANGINA; Start at 19:00 Lisinopril (Zestril) 40 mg DAILY PO Last administered on 09/09/16 16:15; Admin Dose 40 MG; Start 09/09/16 at 15:30 KELSEY HAY Sep 09, 2016 18:44
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
[2016-09-09] MEDS: NIFEdipine (XL) 30 MG TAB PO SCH (20:16)
[2016-09-10] VITALS (9 sets, daily range): BP systolic 151–160; BP diastolic 78–100; PULSE 57–91; RESP 18–22
[2016-09-10] MEDS: ACCU-CHEK XX SCH (02:00)
[2016-09-10] MEDS: INSULIN ASPART [NOVOLOG] 3 ML PEN SC SCH ×3 (08:00→17:14)
[2016-09-10 08:04] LABS: CALCIUM 9.6 mg/dl (8.4-10.2); CREATININE 1.01 mg/dl (0.61-1.24); MAGNESIUM 1.8 mg/dl (1.7-2.5); PHOSPHORUS 4.6 mg/dl (2.5-4.9)
[2016-09-10] MEDS: NIFEdipine (XL) 30 MG TAB PO SCH (08:57)
[2016-09-10] MEDS: CITALOPRAM 20 MG TAB PO SCH (08:57)
[2016-09-10] MEDS: ASPIRIN (EC) 81 MG TAB PO SCH (08:57)
[2016-09-10] MEDS: FAMOTIDINE 20 MG TAB PO SCH (08:57)
[2016-09-10] MEDS: LISINOPRIL 20 MG TAB PO SCH (08:58)
--- NOTE | 2016-09-10 10:26 | PN ---
Date/Time of Note Date/Time of Note DATE: 09/10/16 TIME: 10:24 Assessment/Plan Lines/Catheters IV [facility] Urinary Cath still in place: No Assessment/Plan Chief Complaint/Hosp Course 1. Nonoliguric acute kidney injury on top of possible CKD with unknown baseline creatinine. Etiology appears to be hemodynamics from volume depletion, diuretic effect. Patient's renal function improved with IV hydration. -cont renally dose all meds, avoid nephrtoxins 2. Hypotension. Etiology likely from volume depletion from diuretic therapy. - resolved 2. Anemia. Monitor H&H levels #3 mineral bone disorder will monitor calcium phosphorus level 4. Hypertension. cont med/herminio \Diabetes. Continue Accu-Cheks insulin signs 6. Nonobstructing renal calculi. Continue to observe outpatient urology for evaluation. 7. Chest pain continue medical management patient's been ruled out for acute coronary syndrome. -Pending cardiac stress test -Follow-up with cardiology for medical management Problems: Subjective 24 Hr Interval Summary Free Text/Dictation Subjectively patient is stable. no Acute overnight. Patient's pending cardiac stress test. Exam/Review of Systems Vital Signs Vitals Vital Signs Date Time Temp Pulse Resp B/P Pulse Ox O2 Delivery O2 Flow Rate FiO2 09/10/16 08:32 98.0 68 18 153/84 98 09/09/16 16:00 Room Air Intake and Output 09/09/16 09/09/16 09/10/16 15:00 23:00 07:00 Intake Total 710 ml 500 ml Balance 710 ml 500 ml Exam HEENT. Head is normocephalic pupils are reactive to light next sentence cardiovascular regular rate no gallops lungs show diminished breath sounds at the base Abdomen soft nontender palpation no rebound guarding Extremities are negative for clubbing cyanosis no edema Dermatologically no rashes Musculoskeletal no joint effusion Neurologically no focal deficit Results Result Diagram: 09/09/16 0620 09/10/16 0615 Results 24 hrs Laboratory Tests Test 09/09/16 11:51 09/09/16 17:10 09/09/16 20:19 09/10/16 06:15 Bedside Glucose 111 106 102 Sodium Level 143 Potassium Level 4.0 Chloride Level 100 Carbon Dioxide Level 28 Anion Gap 19 #H Blood Urea Nitrogen 15 Creatinine 1.01 Glucose Level 107 Calcium Level 9.6 Phosphorus Level 4.6 Magnesium Level 1.8 Test 09/10/16 08:33 Bedside Glucose 105 Medications Medications Current Medications Aspirin (Halfprin) 81 mg DAILY PO Last administered on 09/10/16 08:57; Admin Dose 81 MG; Start 09/08/16 at 09:00 Citalopram Hydrobromide (Celexa) 20 mg DAILY PO Last administered on 09/10/16 08:57; Admin Dose 20 MG; Start 09/08/16 at 09:00 Ondansetron HCl (Zofran Inj) 4 mg Q6H PRN IV NAUSEA AND/OR VOMITING; Start at 21:30 Acetaminophen (Tylenol Tab) 650 mg Q6H PRN PO PAIN LEVEL 1-3 OR FEVER; Start at 21:30 Famotidine (Pepcid) 20 mg DAILY PO Last administered on 09/10/16 08:57; Admin Dose 20 MG; Start 09/07/16 at 21:30 Hydralazine HCl (Apresoline) 25 mg Q6H PRN PO ELEVATED BLOOD PRESSURE Last administered on 09/09/16 22:02; Admin Dose 25 MG; Start 09/07/16 at 22:00 Diagnostic Test (Pha) (Accu-Chek) 1 ea 02 XX ; Start 09/09/16 at 02:00 Miscellaneous Information 1 ea NOTE XX ; Start 09/08/16 at 16:00 Glucose (Glutose) 15 gm Q15M PRN PO DECREASED GLUCOSE; Start 09/08/16 at 16:00 Glucose (Glutose) 22.5 gm Q15M PRN PO DECREASED GLUCOSE; Start 09/08/16 at 16: 00 Dextrose (D50w Syringe) 25 ml Q15M PRN IV DECREASED GLUCOSE; Start 09/08/16 at 16:00 Dextrose (D50w Syringe) 50 ml Q15M PRN IV DECREASED GLUCOSE; Start 09/08/16 at 16:00 Glucagon (Glucagen) 1 mg Q15M PRN IM DECREASED GLUCOSE; Start 09/08/16 at 16:00 Glucose (Glutose) 15 gm Q15M PRN BUCCAL DECREASED GLUCOSE; Start 09/08/16 at 16 :00 Nitroglycerin (Nitroglycerin (Sl Tab) 0.4 Mg) 1 tab Q5M PRN SL ANGINA; Start at 19:00 Lisinopril (Zestril) 40 mg DAILY PO Last administered on 09/10/16 08:58; Admin Dose 40 MG; Start 09/09/16 at 15:30 Nifedipine (Procardia Xl) 30 mg DAILY PO Last administered on 09/10/16 08:57; Admin Dose 30 MG; Start 09/09/16 at 20:00 Clonidine (Catapres) 0.1 mg Q4H PRN PO SBP>170; Start 09/09/16 at 19:00 KELSEY DOVER DO Sep 10, 2016 10:26
[2016-09-10] MEDS ORDERED: REGADENOSON 0.4 MG/5 ML SYG ONE (11:12)
[2016-09-10 12:03] LABS: MICROALBUMIN 4.7 mg/dL
--- NOTE | 2016-09-10 12:04 | CONS ---
Date/Time of Note Date/Time of Note DATE: 09/10/16 TIME: 12:00 Assessment/Plan Assessment/Plan Chief Complaint/Hosp Course IMp: 1.Chest pain-assess for acs. Negtaive trop x 3/NL EF by cedric this admit 2.Hotn-now improved with HTN still moderately uncontrolled 3.abnl ecg-lateral T wave inversion 4.psych d/o 5. DM 6. Renal failure-improved s/p IVF hydration Recc: -Tele -serial ecg's -Continue asa -PRN SLNTG -Continue ACEI -Increase CCB amber improve BP -Lexiscan today and if negative for ischemia and BP reasonable control then d/c planning Problems: Consultation Date/Type/Reason Admit Date/Time Sep 07, 2016 at 21:23 Initial Consult Date 09/08/16 Type of Consultation: cardiology Reason for Consultation chest pain Referring Provider: ANURAG ROSS Exam/Review of Systems Vital Signs Vitals Vital Signs Date Time Temp Pulse Resp B/P Pulse Ox O2 Delivery O2 Flow Rate FiO2 09/10/16 08:32 98.0 68 18 153/84 98 09/09/16 16:00 Room Air Intake and Output 09/09/16 09/09/16 09/10/16 15:00 23:00 07:00 Intake Total 710 ml 500 ml Balance 710 ml 500 ml Exam Review of Systems: CONSTITUTIONAL: No fevers, chills. PULMONARY: No sob CARDIOVASCULAR:intermittent chest pain GASTROINTESTINAL: No nausea/vomiting. GENITOURINARY: No hematuria/dysuria. MUSCULOSKELETAL: No myagias/arthalgias. PSYCHIATRIC: The patient denies depression. NEUROLOGIC: No weakness Constitutional: alert, oriented Psych: no complaints Head: normocephalic ENMT: mucosa pink and moist Neck: jvd (9 cm water), supple Respiratory: diminished breath sounds (at bases/B) Cardiovascular: regular rate and rhythm Gastrointestinal: non-tender, soft Musculoskeletal: muscle tone (normal) Extremities: edema (none) Neurological: other (No focal deficits) Results Result Diagram: 09/09/16 0620 09/10/16 0615 Results 24 hrs Laboratory Tests Test 09/09/16 17:10 09/09/16 20:19 09/10/16 06:15 09/10/16 08:33 Bedside Glucose 106 102 105 Sodium Level 143 Potassium Level 4.0 Chloride Level 100 Carbon Dioxide Level 28 Anion Gap 19 #H Blood Urea Nitrogen 15 Creatinine 1.01 Glucose Level 107 Calcium Level 9.6 Phosphorus Level 4.6 Magnesium Level 1.8 Medications Medications Current Medications Aspirin (Halfprin) 81 mg DAILY PO Last administered on 09/10/16 08:57; Admin Dose 81 MG; Start 09/08/16 at 09:00 Citalopram Hydrobromide (Celexa) 20 mg DAILY PO Last administered on 09/10/16 08:57; Admin Dose 20 MG; Start 09/08/16 at 09:00 Ondansetron HCl (Zofran Inj) 4 mg Q6H PRN IV NAUSEA AND/OR VOMITING; Start at 21:30 Acetaminophen (Tylenol Tab) 650 mg Q6H PRN PO PAIN LEVEL 1-3 OR FEVER; Start at 21:30 Famotidine (Pepcid) 20 mg DAILY PO Last administered on 09/10/16 08:57; Admin Dose 20 MG; Start 09/07/16 at 21:30 Hydralazine HCl (Apresoline) 25 mg Q6H PRN PO ELEVATED BLOOD PRESSURE Last administered on 09/09/16 22:02; Admin Dose 25 MG; Start 09/07/16 at 22:00 Diagnostic Test (Pha) (Accu-Chek) 1 ea 02 XX ; Start 09/09/16 at 02:00 Miscellaneous Information 1 ea NOTE XX ; Start 09/08/16 at 16:00 Glucose (Glutose) 15 gm Q15M PRN PO DECREASED GLUCOSE; Start 09/08/16 at 16:00 Glucose (Glutose) 22.5 gm Q15M PRN PO DECREASED GLUCOSE; Start 09/08/16 at 16: 00 Dextrose (D50w Syringe) 25 ml Q15M PRN IV DECREASED GLUCOSE; Start 09/08/16 at 16:00 Dextrose (D50w Syringe) 50 ml Q15M PRN IV DECREASED GLUCOSE; Start 09/08/16 at 16:00 Glucagon (Glucagen) 1 mg Q15M PRN IM DECREASED GLUCOSE; Start 09/08/16 at 16:00 Glucose (Glutose) 15 gm Q15M PRN BUCCAL DECREASED GLUCOSE; Start 09/08/16 at 16 :00 Nitroglycerin (Nitroglycerin (Sl Tab) 0.4 Mg) 1 tab Q5M PRN SL ANGINA; Start at 19:00 Lisinopril (Zestril) 40 mg DAILY PO Last administered on 09/10/16 08:58; Admin Dose 40 MG; Start 09/09/16 at 15:30 Nifedipine (Procardia Xl) 30 mg DAILY PO Last administered on 09/10/16 08:57; Admin Dose 30 MG; Start 09/09/16 at 20:00 Clonidine (Catapres) 0.1 mg Q4H PRN PO SBP>170; Start 09/09/16 at 19:00 KELSEY HAY Sep 10, 2016 12:03
--- NOTE | 2016-09-10 12:12 | OPR ---
Date/Time of Note Date/Time of Note DATE: 09/10/16 TIME: 12:07 Operative Report Procedure Date: Sep 10, 2016 Preoperative Diagnosis chest pain Postoperative Diagnosis chest pain Operation Performed Lexiscan stress test Surgeon: KELSEY HAY Anesthesia: other (none) Estimated Blood Loss: other (NA) Complications: None Operative\Procedure Findings Baseline ECG [id number]@73, NL axis, lateral TWI Baseline vitals: BP 109/65 P 73 Findings: No lexiscan induced STTWA's Symptoms: NO chest Pain/sob Conclusion: No lexiscan induced STTWA's that were diagnostic for cardiac ischemia. Nuclear images to follow in separate report Procedure Description Lexiscan infusion over 10 seconds followed by radiolabled tracer KELSEY HAY Sep 10, 2016 12:12
--- NOTE | 2016-09-10 13:23 | RADRPT ---
PROCEDURE: Lexiscan myocardial perfusion study CLINICAL INDICATION: 46 -year-old patient complaining of chest pain. TECHNIQUE: Lexiscan 0.4 mg intravenously separate acquisition gated myocardial perfusion SPECT usi ng Tc 99m Myoview 32.0 mCi intravenously at stress and Tc-99m Myoview, 10.4 mCi intravenously at res t was performed using the rest/stress sequence. Poststress Myoview SPECT images were obtained in th e supine position. COMPARISON: No prior studies. FINDINGS: Perfusion images reveal no evidence of perfusion defects. Lexiscan post stress gated SPECT images demonstrate no wall motion abnormalities. IMPRESSION: 1. No evidence of perfusion defects. 2. No wall motion abnormalities. 3. The left ventricle ejection fraction at stress is 63%. A call report was made to Dr. Marie at 01:19 p.m. on September 10, 2016. RPTAT: HH .Erinn Zavaleta MD, Date Time Electronically viewed and signed by .Erinn Zavaleta MD, MD on 09/10/2016 13:23 .L/
[2016-09-10] MEDS ORDERED: NIFE30TA2 PO (16:50)
--- NOTE | 2016-09-10 20:00 | DS ---
Date/Time of Note Date/Time of Note DATE: 09/10/16 TIME: 19:56 Discharge Summary Admission/Discharge Info Admit Date/Time Sep 07, 2016 at 21:23 Discharge Date/Time Sep 10, 2016 at 18:00 Discharge Diagnosis 1. Chest pain 2. Prediabetes 3. Dyslipidemia Patient Condition: Stable Consults Natalia: Hx of Present Illness Chief complaint: Chest pressure and elevated blood pressures This is a 46-year-old male who came into the ED with chest pressure and elevated blood pressure in the systolic 200s and then later on low blood pressures. He says he has not taken any more of his usual blood pressure medication. He says he has been taking it today as he usually does. He said that he has been having some chest pain off and on yesterday and today with some shortness of breath. The chest pains described as a pressure without radiation but only lasts a brief period. Currently he is chest pain-free. He said he went to his doctor this afternoon who checked on him but told him to go home and take a nap and to rest. Patient states that he originally felt slightly dizzy but not syncopal when he came to the ED. The patient says he has not been sick lately no fever no nausea vomiting diarrhea or abdominal pain. Allergies: NKDA Medications: See MAY . Hospital Course Patient discharge was held and his stress test rescheduled for today. This was done and it showed no reversible ischemia, his blood pressure meds were titrated and he has been cleared for discharge at this time. For further details see my previous discharge summary. Home Meds Active Scripts Nifedipine (Procardia Xl) 30 Mg Tab.er.24, 30 MG PO BID for 30 Days, TAB 2 Refills Prov:ORTIZ ROSSJAH Lee 09/10/16 Nitroglycerin* (Nitrostat*) 0.4 Mg Tab.subl, 1 TAB SL Q5M Y for ANGINA, #15 Prov:CODY,ANURAG Lee 09/09/16 Atenolol* (Atenolol*) 50 Mg Tablet, 50 MG PO DAILY, #30 TAB 2 Refills Prov:CODY,ANURAG Lee 09/09/16 Benazepril Hcl* (Benazepril Hcl*) 40 Mg Tablet, 40 MG PO DAILY, #30 TAB Prov:CODY,ANURAG Lee 09/09/16 Reported Medications Mirtazapine* (Mirtazapine*) 15 Mg Tablet, 15 MG PO HS, TAB 09/07/16 Risperidone* (Risperdal*) 2 Mg Tablet, 2 MG PO DAILY, TAB 09/07/16 Citalopram Hydrobromide* (Celexa*) 20 Mg Tablet, 20 MG PO DAILY, #30 TAB 09/07/16 Aspirin (Aspirin Low Dose) 81 Mg Tablet.dr, 81 MG PO DAILY, #30 TAB 09/07/16 Amlodipine Besylate* (Norvasc*) 10 Mg Tablet, 10 MG PO DAILY, TAB 09/07/16 Metformin Hcl* (Metformin Hcl*) 1,000 Mg Tablet, 1000 MG PO WITH BREAKFAST DINNE , #60 TAB 09/07/16 Discontinued Reported Medications Atenolol* (Atenolol*) 100 Mg Tablet, 100 MG PO BID, #30 TAB 09/07/16 Hydrochlorothiazide* (Hydrochlorothiazide*) 25 Mg Tab, 25 MG PO DAILY, #30 TAB 09/07/16 Clonidine Hcl* (Clonidine Hcl*) 0.3 Mg Tablet, 0.3 MG PO TID Y for HTN, TAB 09/07/16 Ibuprofen* (Ibuprofen*) 600 Mg Tablet, 600 MG PO Q6H Y for PAIN, TAB 09/07/16 Risperidone* (Risperdal*) 2 Mg Tablet, 2 MG PO DAILY, TAB 01/06/16 Mirtazapine* (Mirtazapine*) 15 Mg Tablet, 15 MG PO HS, TAB 01/06/16 Citalopram Hydrobromide* (Citalopram Hydrobromide*) 20 Mg Tablet, 20 MG PO DAILY , #30 TAB 01/06/16 Glucosamine/Msm/Chondroitin A (CONDROLITE TABLET) 1 Each Tablet, 1 EACH PO DAILY 06/30/13 Cyclobenzaprine Hcl (Flexeril) 10 Mg Tablet, 7.5 MG PO BID 06/30/13 Omeprazole* (Omeprazole*) 40 Mg Capsule.dr, 40 MG PO BID 06/30/13 Naproxen* (Naproxen*) 500 Mg Tablet, 500 MG PO BID 06/30/13 Hydrocodone Bit-Acetaminophen* ([place]*) 1 Tab Tab, 1 TAB PO BID, TAB 4/19/14 Zolpidem Tartrate* (Zolpidem Tartrate*) 10 Mg Tablet, 10 MG PO HS 06/30/13 Lisinopril* (Prinivil*) 20 Mg Tablet, DAILY 06/29/13 Discontinued Scripts Diazepam* (Valium*) 5 Mg Tablet, 5 MG PO Q8 for MUSCLE SPASMS, #10 TAB Prov:JESI HOLLIS PA-C 09/04/15 Ibuprofen* (Motrin*) 600 Mg Tab, 600 MG PO Q6H Y for PAIN AND OR ELEVATED TEMP, #30 TAB Prov:JESI HOLLIS PA-C 09/04/15 Primary Care Provider [facility] Pending Labs Laboratory Tests Test 09/09/16 20:19 09/10/16 06:15 09/10/16 08:33 09/10/16 13:10 Bedside Glucose 102mg/dL (70-220) 105mg/dL (70-220) 104mg/dL (70-220) Sodium Level 143mmol/L (135-144) Potassium Level 4.0mmol/L (3.5-5.1) Chloride Level 100mmol/L (97-110) Carbon Dioxide Level 28mmol/L (21-31) Anion Gap 19 (8-16) Blood Urea Nitrogen 15mg/dl (7-20) Creatinine 1.01mg/dl (0.61-1.24) Glucose Level 107mg/dl (70-220) Calcium Level 9.6mg/dl (8.4-10.2) Phosphorus Level 4.6mg/dl (2.5-4.9) Magnesium Level 1.8mg/dl (1.7-2.5) Test 09/10/16 17:01 Bedside Glucose 98mg/dL (70-220) ANURAG ROSS Sep 10, 2016 20:00
[2016-09-10] MEDS ORDERED: NIFEdipine (XL) 30 MG TAB PO SCH (21:00)
== END 2016-09-10 18:00 | disposition home or self-care (01) | DRG 313 ==
LOC: E/R 17:47 → MS4 21:23
PROVIDERS: ADMIT Family Medicine; ATTEND Family Medicine
DX: R07.9 Chest pain, unspecified (principal); N17.9 Acute kidney failure, unspecified; I95.9 Hypotension, unspecified; N20.0 Calculus of kidney; F43.10 Post-traumatic stress disorder, unspecified; E86.0 Dehydration; I12.9 Hypertensive chronic kidney disease with stage 1 through stage 4 chronic kidney disease, or unspecified chronic kidney disease; N18.9 Chronic kidney disease, unspecified; D64.9 Anemia, unspecified; R42 Dizziness and giddiness; R73.03 Prediabetes
CPT/HCPCS: 71010; 76775; 78452; 80048; 80053; 80061; 81001; 81003; 82043; 82550; 82553; 82962; 83036; 83735; 83880; 84100; 84155; 84300; 84443; 84484; 85025; 93005; 93017; 93306; A9500; A9505; J1815; J2785; J7030

== ENCOUNTER 2017-06-08 16:56 | Emergency (ER) | END 2017-06-08 20:15 | disposition home or self-care (01) ==

== ENCOUNTER 2018-08-03 15:08 | Day surgery (SDC) | payer OTHER ==
[2018-08-02 17:48] VITALS: Ht 167.6 cm; Wt 89.7 kg
[2018-08-03] VITALS (21 sets, daily range): BP systolic 132–160; BP diastolic 81–99; PULSE 69–83; RESP 12–19
[~2018-08-03] VITALS: Ht 167.6 cm; Wt 89.7 kg
--- NOTE | 2018-08-03 11:22 | HPN ---
Date/Time of Note Date/Time of Note DATE: 08/03/18 TIME: 11:21 Interval H&P Admission Note Pt. seen H&P reviewed: No system changes RAYMOND REESE MD August 03, 2018 11:21
[~2018-08-03 15:08] MED LIST changes: +AMLO-218 PO; +ASPI-818 PO; +ATEN50TA PO; +BENA40TA56 PO; +CITA20TA11 PO; -CITA20TA6 PO; -CYCL-117 PO; -DIAZ-90 PO; -HYDR-3612 PO; -IBUP-1542 PO; -LISI20TA; +METF100010 PO; -NAPR-688 PO; +NIFE30TA2 PO; +NITR0.4T39 SL; -OMEP40CA6 PO; -ZOLP10TA5 PO; -[UNRECOGNIZED DRUG - CODE] PO
[2018-08-03] MEDS: LACTATED RINGER'S 1,000 ML IV SCH ×3 (15:52→18:43)
[2018-08-03] MEDS ORDERED: LIDOCAINE 1% (MPF) 30 ML INJ ONE (16:15)
[2018-08-03] MEDS ORDERED: ROPIVACAINE 0.5 % 30 ML VIAL ONE (16:15)
[2018-08-03] MEDS ORDERED: morphine SULFATE/PF (10 MG/10 ML) INJ ONE (16:17)
[2018-08-03] MEDS ORDERED: NEOMYC/POLYMYX/BACIT 30 GM OINT ONE (16:18)
--- NOTE | 2018-08-03 17:04 | PREAC ---
Date/Time of Note Date/Time of Note DATE: 08/03/18 TIME: 17:02 Anesthesia Eval and Record Evaluation Time Pre-Procedure Interview DATE: 08/03/18 TIME: 17:02 Age 48 Sex male NPO: 8 hrs Preoperative diagnosis left knee medial meniscus tear Planned procedure left knee arthroscopy, partial medial and lateral meniscectomy Past Medical History Past Medical History: Includes GI: Obesity Surgery & Anesthesia Issues No known issue Meds Anticoagulation: No Beta Reema within 24 hr: No Reason Beta Reema not given: Pt. not on B-Reema Active Scripts Nifedipine (Procardia Xl) 30 Mg Tab.er.24, 30 MG PO BID for 30 Days, TAB 2 [facility] Nitroglycerin* (Nitrostat*) 0.4 Mg Tab.subl, 1 TAB SL Q5M PRN for ANGINA, #15 [facility] 09/09/16 Atenolol* (Atenolol*) 50 Mg Tablet, 50 MG PO DAILY, #30 TAB 2 [facility] 09/09/16 Benazepril Hcl* (Benazepril Hcl*) 40 Mg Tablet, 40 MG PO DAILY, #30 TAB [facility] 09/09/16 Reported Medications Mirtazapine* (Mirtazapine*) 15 Mg Tablet, 15 MG PO HS, TAB 09/07/16 Risperidone* (Risperdal*) 2 Mg Tablet, 2 MG PO DAILY, TAB 09/07/16 Citalopram Hydrobromide* (Celexa*) 20 Mg Tablet, 20 MG PO DAILY, #30 TAB 09/07/16 Aspirin (Aspirin Low Dose) 81 Mg Tablet.dr, 81 MG PO DAILY, #30 TAB 09/07/16 Amlodipine Besylate* (Norvasc*) 10 Mg Tablet, 10 MG PO DAILY, TAB 09/07/16 Metformin Hcl* (Metformin Hcl*) 1,000 Mg Tablet, 1000 MG PO WITH BREAKFAST DINNE, #60 TAB 09/07/16 Current Medications Lactated Ringer's 1,000 ml @ 25 mls/hr Q24H IV Last administered on 08/03/18at 15:52; Admin Dose 25 MLS/HR; Start 08/03/18 at 16:00 Meds reviewed: Yes Allergies Coded Allergies: No Known Drug Allergy (Verified Allergy, Mild, 09/07/16) Allergies Reviewed: Yes Labs/Studies Labs Reviewed: Reviewed by anesthesiologist test: N/A Studies: ECG (incomplete RBBB), CXR (NAPD) Pre-procedure Exam Last vitals Vital Signs Date Temp Pulse Resp B/P (MAP) Pulse Ox O2 O2 Flow FiO2 Time Delivery Rate 08/03/18 97.5 69 16 147/90 99 Room Air 16:10 (109) Airway: Adequate mouth opening, Adequate thyromental dist Mallampati: Mallampati II Teeth: Normal Lung: Normal Heart: Normal ASA Physical Status ASA physical status: 2 Emergency: None Planned Anesthetic General/MAC: ETT Planned Pain Management Parenteral pain med Pre-operative Attestations Prior to commencing anesthesia and surgery, the patient was re-evaluated, there was verification of: *The patient's identity *The results of appropriate recent lab work and preoperative vital signs *The above evaluation not changing prior to induction *Anesthetic plan, risk benefits, alternative and complications discussed with patient/family; questions answered; patient/family understands, accepts and wishes to proceed. Elliott Muhammad M.D. August 03, 2018 17:04
[2018-08-03] MEDS ORDERED: MIDAZOLAM 1 MG/ML 2 ML INJ ONE (17:06)
[2018-08-03] MEDS ORDERED: CEFAZOLIN 1 GM INJ ONE (17:06)
[2018-08-03] MEDS ORDERED: GLYCOPYRROLATE 0.4 MG INJ ONE (17:06)
[2018-08-03] MEDS ORDERED: ROCURONIUM 50 MG INJ ONE (17:06)
[2018-08-03] MEDS ORDERED: ONDANSETRON 4 MG INJ ONE (17:06)
[2018-08-03] MEDS ORDERED: PROPOFOL 20 ML ONE (17:06)
[2018-08-03] MEDS ORDERED: NEOSTIGMINE 3 MG/3 ML SYRINGE ONE (17:06)
[2018-08-03] MEDS ORDERED: FENTAnyl 50 MCG/ML VIAL ONE (17:06)
[2018-08-03] MEDS ORDERED: DEXAMETHASONE 4 MG/ML 5 ML INJ ONE (17:06)
[2018-08-03] MEDS ORDERED: EPHEDrine 25 MG/5 ML SYG IV PRN (17:30)
[2018-08-03] MEDS ORDERED: LABETALOL HCL 20MG INJ IV PRN (17:30)
[2018-08-03] MEDS ORDERED: DIPHENHYDRAMINE 50 MG INJ IV PRN (17:30)
[2018-08-03] MEDS ORDERED: MEPERIDINE 25 MG INJ IV PRN (17:30)
[2018-08-03] MEDS ORDERED: FENTAnyl 50 MCG/ML VIAL IV PRN ×3 (17:30)
[2018-08-03] MEDS ORDERED: ALBUTEROL 0.083% (NEB) 2.5 MG/3 ML AMP HHN PRN (17:30)
[2018-08-03] MEDS ORDERED: TRIMETHOBENZAMIDE 100 MG/ML VIAL IM PRN (17:30)
[2018-08-03] MEDS ORDERED: hydrALAzine 20 MG INJ IV PRN (17:30)
[2018-08-03] MEDS ORDERED: IPRATROPIUM (NEB) 0.5 MG/2.5 ML AMP HHN PRN (17:30)
[2018-08-03] MEDS ORDERED: ONDANSETRON 4 MG INJ IV PRN (17:30)
[2018-08-03] MEDS ORDERED: HYDROmorphONE 1 MG/5 ML IV SYRINGE IV PRN ×3 (17:30)
[2018-08-03] MEDS ORDERED: OXYCODONE/ACETAMINOPHEN (5/325) TAB PO PRN ×2 (17:30)
[2018-08-03] MEDS ORDERED: MIDAZOLAM 1 MG/ML 2 ML INJ IV PRN (17:30)
[2018-08-03] MEDS ORDERED: LABETALOL HCL 20MG INJ ONE (18:58)
[2018-08-03] MEDS ORDERED: KETOROLAC 30 MG INJ ONE (19:40)
[2018-08-03] MEDS ORDERED: SUGAMMADEX SODIUM 200 MG/2 ML VIAL IV ONE (19:52)
--- NOTE | 2018-08-03 20:02 | PAC ---
Date/Time of Note Date/Time of Note DATE: 08/03/18 TIME: 20:02 Post-Anesthesia Notes Post-Anesthesia Note Last documented vital signs Vital Signs Date Temp Pulse Resp B/P (MAP) Pulse Ox O2 O2 Flow FiO2 Time Delivery Rate 08/03/18 97.5 69 16 147/90 99 Room Air 16:10 (109) Activity: WNL Respiratory function: WNL Cardiovascular function: WNL Mental status: Baseline Pain reasonably controlled: Yes Hydration appropriate: Yes Nausea/Vomiting absent: Yes Elliott Muhammad M.D. August 03, 2018 20:02
--- NOTE | 2018-08-03 20:17 | OPR ---
Date/Time of Note Date/Time of Note DATE: 08/03/18 TIME: 20:07 Operative Report Procedure Date: August 03, 2018 Preoperative Diagnosis LEFT KNEE medial meniscal tear Postoperative Diagnosis LEFT KNEE medial and lateral meniscal tear Left knee trochlear chondromalacia grade 2 Operation/Procedure Performed Left knee arthroscopy with partial medial and lateral meniscectomy and chond roplasty Surgeon Carlos Reese MD Flatbed Stitcher none Anesthesia Type: general, other (local) Anesthesiologist: Elliott Muhammad M.D. Tourniquet Time: 21 min at 250 mm Hg Estimated Blood Loss: 0 - 10 ml's Transfusion none Specimen none Grafts/Implants none Complications none Pt Condition Post Procedure: stable Disposition: PACU Indications INDICATIONS: Patient is a 48-year-old male with ongoing Left knee pain. The patient has complained of having catching, clicking and locking symptoms over the medial aspect of the knee with no relief with physical therapy or anti- inflammatory. Patient has decided to proceed with surgery. RISK NOTE: Patient was explained the risks and benefits of the surgery in the patients [place] language, including not limited to infection, bleeding, loss of limb, loss of life, need for future surgery, risk of anesthesia, risk of injury to the blood vessels and nerves, ligaments or tendons, and risk of deep vein thrombosis. Patient understood these risks and wished to proceed with the surgery. Procedure Description The correct operative site was noted and marked in the preoperative holding area. The patient was then brought back into the operative theater, placed supine on the operative table. Left knee was examined under anesthesia. Range of motion was 0-120. There is no varus or valgus or anterior or posterior instability. There is crepitus noticed at the patellofemoral joint. Tourniquet was then placed on the operative extremity thigh non-sterilely. Patient was then given preoperative antibiotics and then prepped and draped in normal sterile fashion. A timeout was taken and all parties in the room agreed it was the correct patient, correct extremity and correct procedure. Standard anterior lateral portal was created and the knee joint was entered with a blunt tipped trocar, followed by 30 arthroscope. Inflow was achieved with a pump and the pressure maintained at approximately 50 mmHg. A routine arthroscopic surgery was performed. Suprapatella pouch was unremarkable. The undersurface of the patella showed advanced grade 1 chondromalacia . The trochlea showed central grade II chondromalacia The medial and lateral gutters were visualized. There were no loose bodies see n. There is an inflamed hypertrophic plica noted in the anterior and superior medial aspect of the knee. The popliteus hiatus was entered and was normal. Lateral compartment was entered and grade 1 chondromalacia was seen on the lateral tibial plateau and femoral condyle. Scope was then brought into the intercondylar notch and an anteromedial portal was made. Shaver was brought into the knee and small amount of fat pad and scar tissue was initially gently debrided. The anterior cruciate ligament was intact and probed. The knee was brought into a valgus position and the medial compartment was entered. The articular surface of the medial femoral condyle and medial tibial plateau revealed minimal chondromalacia. There was a undersurface posterior horn medial meniscus tear that visualized and debrided gently with a motorized shaver. The motorized shaver were used to smooth the remaining meniscal rim, with care to maintain the peripheral meniscal rim. A probe was introduced and this was carefully probed and was found to be stable. Chondroplasty was then carried out along the weightbearing aspect of the medial femoral condyle, medial tibial plateau, taking care to remove only loose articular cartilage debris and preserve functional articular cartilage. The lateral compartment was reentered. The articular surface of the lateral femoral condyle and lateral tibial plateau revealed minimal chondromalacia. There was a interim mid body lateral meniscus tear that visualized and debrided gently with a motorized shaver. The motorized shaver were used to smooth the remaining meniscal rim, with care to maintain the peripheral meniscal rim. A probe was introduced and this was carefully probed and was found to be stable. Chondroplasty was then carried out along the weightbearing aspect of the lateral femoral condyle, lateral tibial plateau, taking care to remove only loose articular cartilage debris and preserve functional articular cartilage. Attention was then directed back to the patella femoral joint and a chondroplasty was carried out along the weightbearing aspect of the trochlea and undersurface of the patella to again remove loose debris and maintain functional active articular cartilage. The knee was then irrigated with additional 2 L of lactated Ringers solution. Excess fluid was then drained. Range of motion was then attempted showing 0- 125 degrees of motion The portal sites were closed with 4-0 Monocryl and Steri-Strips and dressed with Xeroform and triple antibiotic ointment. The knee was then injected with 20 cc of 0.5% plain ropivacaine. A dry sterile dressing was then applied, followed by a compressive bulky soft bandage and an EMMANUEL Wrap. At the completion of the surgery patient had palpable pulses, soft arms and brisk cap refill. The patient tolerated the procedure well and was taken to the PACU without any complications. All sponge and needle counts were correct. Patient will begin pain medicine and 48 hours of antibiotics as well as aspirin 81 mg for the duration of 4 weeks postoperatively CARLOS REESE MD August 03, 2018 20:17
[2018-08-03] MEDS ORDERED: KETOROLAC 30 MG INJ IV SCH (20:30)
[2018-08-03] MEDS ORDERED: morphine 2 MG INJ IV PRN (20:30)
== END 2018-08-03 21:42 | disposition home or self-care (01) ==
LOC: SDS 15:08
PROVIDERS: ATTEND Orthopaedic Surgery
DX: S83.242A Other tear of medial meniscus, current injury, left knee, initial encounter (principal); S83.282A Other tear of lateral meniscus, current injury, left knee, initial encounter; M94.262 Chondromalacia, left knee; I10 Essential (primary) hypertension; E11.9 Type 2 diabetes mellitus without complications
CPT/HCPCS: 29880; 82306; J0360; J0690; J1100; J1885; J2250; J2405; J2710; J2795; J3010; Z7610; J2274